=== PATIENT | female | born 1960 | race African-American/Black ===

== ENCOUNTER 2018-05-29 14:48 | Inpatient (IN) ==
--- NOTE | 2018-05-29 15:10 | ED ---
HPI General Chief Complaint: Psychiatric Symptoms Stated Complaint: Psych/DBPB Time Seen by Provider: 05/29/18 14:58 History of Present Illness HPI Narrative: Patient comes to the emergency department under [place] act by police. Patient states that she was crossing a road when she stopped by police and was placed under [place] act. Patient denies any homicidal or suicidal ideations. Patient denies any medical complaints at this time. Patient's only complaint is not wanting to be here. There are no modifying factors. Related Data Home Medications Medication Instructions Recorded Confirmed No Known Home Medications 05/29/18 05/29/18 Allergies Allergy/AdvReac Type Severity Reaction Status Date / Time No Known Allergies Allergy Unverified 05/29/18 14:53 Review of Systems ROS: all other systems reviewed are negative [facility] Medical History Medical History Surgical history unknown (Acute) Medical history unknown (Acute) Social History Social History Substance History: Unable to Obtain Smoking Status: Refused to answer How Often Do You Have a Drink Containing Alcohol: Unable to Obtain Recent Travel in [facility] within the Last 8 Weeks: No Recent Out of Country Travel within the Last 8 Weeks: No Exam Narrative Exam Narrative: GENERAL: Well-developed, well nourished, in no acute distress, and non-ill appearing. Aggravated. SKIN: Focused skin assessment warm and dry. HEAD: Atraumatic. Normocephalic. EYES: Pupils equal and round. EOMI. No scleral icterus. No injection or drainage. ENT: No nasal bleeding or discharge. Mucous membranes pink and moist. NECK: Trachea midline. Supple. No nuclear rigidity. CARDIOVASCULAR: Regular rate and rhythm. Grade 1/6 murmur appreciated. RESPIRATORY: No accessory muscle use. No respiratory distress. Clear to auscultation. Breath sounds equal bilaterally. MUSCULOSKELETAL: No obvious deformities. No clubbing. No cyanosis. No edema. Full range of motion. NEUROLOGICAL: Awake and alert. No obvious cranial nerve deficits. Motor grossly within normal limits. Normal speech. PSYCHIATRIC: Aggravated. Course Initial Documented Vital Signs Temperature 97.7 F 05/29/18 14:53 Pulse Rate 54 L 05/29/18 14:53 Respiratory Rate 20 05/29/18 14:53 Blood Pressure 210/89 H 05/29/18 14:53 Pulse Oximetry 97 05/29/18 14:53 Last Documented Vital Signs Temperature 97.7 F 05/29/18 14:53 Pulse Rate 49 L 05/29/18 16:39 Respiratory Rate 17 05/29/18 16:39 Blood Pressure 183/83 H 05/29/18 16:39 Pulse Oximetry 98 05/29/18 16:39 Medical Decision Making MDM Narrative Medical decision making narrative: Patient refusing all medical intervention. Patient was seen and examined. Labs were ordered, however patient is refusing all laboratory and other medical intervention. Patient medically cleared for further treatment and evaluation by psych. If patient becomes cooperative labs can be ordered at a later time and reevaluated then. Final disposition per psych. Differential Diagnosis Differential Diagnosis: Acute psychosis, nonspecific mood disorder, schizophrenia, substance induced mood disorder, aggressive behavior Discharge Plan Discharge Disposition Patient Disposition: 30 Still Patient Discharge Details Diagnosis: Medical clearance for psychiatric admission Physicians Team ED Provider: Geraldine Herrera ED Midlevel Provider: Juma Marcano Primary Care Provider: UNKNOWN, Rxs /Orders / Referrals /Forms Prescriptions: No Action No Known Home Medications RF: 0 Discharge Interventions Interventions: Vital Signs Last Done: 05/29/18 16:39 Status ED Status: Medically Cleared
[2018-05-30] MEDS ORDERED: Haloperidol Inj 5 MG/ML Ampul IM ONE (04:02)
[2018-05-30 07:12] VITALS: TEMP 98.4
[2018-05-30] MEDS ORDERED: Aluminum/Magnesium/Simethacone Susp 30 ML UDC PO PRN (08:47)
[2018-05-30] MEDS ORDERED: Acetaminophen 325 MG Tablet PO PRN (08:47)
--- NOTE | 2018-05-30 08:49 | P.HPPSY ---
Provisional Diagnosis Admission Date: May 29, 2018 14:48 [place] I.: 1. Schizophrenia, paranoid type, acute exacerbation [place] II.: Deferred Competence Certification of Person's Competence To Provide Express and Informed Consent I have personally examined Shanice Mooney, a person being served at [facility] on, May 30, 2018 0849. Express and informed consent means consent voluntarily given in writing, by a competent person, after sufficient explanation and disclosure of the subject matter involved to enable the person to make a knowing and willful decision without any element of force, fraud, deceit, duress, or other form of constraint or coercion. This person is 18 years of age or older, is not now known to be incompetent to consent to treatment with a guardian advocate, and does not have a health care surrogate or proxy currently making medical treatment decisions. I have found this person to be one of the following: [] Competent to provide express and informed consent, as defined above, for voluntary admission to this facility and is competent to provide express and informed consent for treatment. He/she has the consistent capacity to make well reasoned, willful, and knowing decisions concerning his or her medical or mental health treatment. The person fully and consistently understands the purpose of the admission for examination/placement and is fully capable of personally exercising all rights [place] [X] Incompetent to provide express and informed consent to voluntary admission, and this is incompetent to provide express and informed consent to treatment. The person must be transferred to involuntary status and a petition for a guardian advocate filed with the Circuit Court. [] Refusing to provide express and informed consent to voluntary admission but is competent to provide express and informed consent for treatment. The person must be discharged or transferred to involuntary status. Form shall be completed within 24 hours of a person's arrival at the receiving facility and filed in the clinical record of each person: 1. Admitted on a voluntary basis 2. Permitted to provide express and informed consent to his/her own treatment 3. Allowed to transfer from involuntary to voluntary status 4. Prior to permitting a person to consent to his or her own treatment after having been previously found incompetent to consent to treatment. History of Present Illness Capacity: Lacks capacity Chief Complaint: Psychosis History of Present Illness: Patient presents as a Shanice Dhillon. Her name is Azalea Lowe ( 1960). She presents under a [place] act by law enforcement alleging that the patient was dancing in the street. Patient required multiple behavioral p.r.n.s in the ED and also restraints for agitation. She has refused all labs. Reviewing the EMR for patient's stated name, I note that she was hospitalized most recently under Dr. Willoughby in 2016 [address] Figueroa in 2014. She has been on Haldol Dec in the past, but it appears from collateral obtained by psych screener that she has not received this in some time. Patient seen and examined. Chart reviewed. Case discussed with nursing staff. On my examination today, the patient is irritable and dysphoric. Her speech is inappropriately loud; some clang association is noted. She is quite paranoid and appears internally stimulated. She tells me that the police cadet who brought her in was "a sophisticated whore." She says of the staff here that "all of you are fucking with me! I wasn't stupid or crazy" when she arrived. She tells me "I'm not violent now, but when I go out in the real world I will be! [place] will be sued!" She denies any suicidal ideation, but it is not clear whether she is reliable to contract for safety. Patient is disheveled and there is concern for self-care deficit. Psychiatric interview is limited secondary to degree of psychiatric symptomatology. She has no acute physical complaints. Past psychiatric history: "I don't have no history of mental illness!" Patient does have a history of psychiatric admissions as noted above. Family history: "If my family has a psychiatric history, I don't know Dr. Rodrigues , Dr. Olivarez." She then begins singing in a nonsensical fashion. Chemical dependency history: "Only the drugs you give me." Social history: Unable to obtain because of psychiatric symptomatology. Given the patient's degree of psychiatric impairment and endeavor to reach out to the patient's brother Fito Sprague at [phone]. This number rings with no opportunity to leave a voicemail. I was able to reach the patient's niece Emily Marcano at [phone]. Ms. Marcano notes that the patient used to be under the care of the patient's sister who made sure that she took her medications. After sister's passing 2 years ago, the patient became medication nonadherent. She has been "out of control" and living homeless. Ms. Marcano is willing to act as healthcare surrogate. She provides consent to temporarily restrain the patient to obtain laboratories and EKG to better select pharmacotherapy for patient's condition. Review of Systems unobtainable due to mental condition PMFSH - History History Provided By: Patient - Medical History Medical History: Medical History (Last Updated 05/29/18 @ 14:57 by Marla Stinson) Surgical history unknown (Acute) Medical history unknown (Acute) - Tobacco History Smoking Status: Refused to answer - Alcohol History How Often Do You Have a Drink Containing Alcohol: Unable to Obtain - Substance Use History Substance History: Unable to Obtain - Travel History Recent Travel in the [place] Within the Last 8 Weeks: No Recent Travel Out of the Country Within the Last 8 Weeks: No - Immunization History Tetanus Immunization: Unable to Assess Hx Influenza Vaccine This Season: Unable to Assess Quality Measures - Psychiatric History Psychological trauma history: Unobtainable secondary to psychiatric condition - Patient Strengths Patient's strengths (minimum of 2): In a monitored setting. Verbally fluent. Medications and Allergies Allergies Allergy/AdvReac Type Severity Reaction Status Date / Time lisinopril Allergy Unknown Bradycardia Verified 05/29/18 17:17 orange juice Allergy Unknown Swelling Verified 05/29/18 17:17 of Lip/Tongue/Throat Home Medications Medication Instructions Recorded Confirmed Type No Known Home Medications 05/29/18 05/29/18 History Results - Labs Labs: Patient refused laboratories Exam Vital signs: Vital Signs 05/29/18 14:53 05/29/18 16:39 05/29/18 18:43 Temperature 97.7 F Pulse Rate 54 L 49 L Respiratory Rate 20 17 16 Blood Pressure 210/89 H 183/83 H Pulse Oximetry 97 98 05/29/18 19:07 05/29/18 19:30 05/30/18 07:11 Temperature 97.9 F 98.4 F Pulse Rate 63 54 L 86 Respiratory Rate 16 18 Blood Pressure 134/91 H 185/86 H Pulse Oximetry 100 100 Intake & Output 05/29/18 05/30/18 05/30/18 18:59 06:59 18:59 Weight 68.039 kg Narrative: Physical examination completed by ED provider. On my examination today, the patient appears to be in no acute physical distress. She is fairly disheveled. No motor abnormalities noted. Patient refusing laboratories. Mental Status Examination Appearance: Disheveled Consciousness: Alert, Vigilant Orientation: Person, Place (At least) Motor Activity: Other (No motor abnormalities noted) Speech: Other (Loud) Language: Adequate Fund of Knowledge: Inadequate Attention and Concentration: Easily distracted Memory: Impaired (Psychosis interferes) Mood: Angry, Oppositional, Irritable Affect: Irritable, Other (Dysphoric) Thought Process & Associations: Tangential Thought Content: Hallucinations, Delusional Hallucination Type: Other (Appears internally stimulated) Delusion Type: Paranoid Suicidal Ideation: No (Unreliable to contract for safety) Suicidal Plan: No Suicidal Intention: No Homicidal Ideation: Yes (See threats above) Homicidal Plan: No Homicidal Intention: No Insight: Poor Judgment: Poor Assessment and Plan - Assessment (1) Acute exacerbation of chronic paranoid schizophrenia Code(s): F20.0 - Paranoid schizophrenia Status: Acute - Plan Plan: Patient presents under [place] Act. She has a history of schizophrenia and appears to be experiencing acute exacerbation of chronic psychotic illness at this time. Collateral from the patient's niece indicates that she has long been medication nonadherent. Given concern for self-care deficit both because she was standing in the middle of the street and because of her disheveled appearance and given threats of violence as noted above I think it is most prudent to admit the patient to the inpatient psychiatric unit at this time for safety, observation and stabilization. Admit inpatient. Involuntary status. I have completed first opinion. Consult for second opinion. Request healthcare surrogate and guardian advocate. Patient has a history of Haldol Decanoate but also has a history of prolonged QTc. I would like to review laboratories and EKG prior to initiating antipsychotic. I have obtained consent from patient's healthcare surrogate temporarily restrain the patient to obtain needed laboratories and EKG. Once this has been done and based on the results, we will select appropriate pharmacotherapy for the patient's condition with consent of her health care surrogate. Vitals every shift. I will add clonidine as needed for hypertension. I do note that the patient has been on lisinopril in the past, but I see it is listed as one of her allergies. To consider an alternative antihypertensive if blood pressures remain elevated. Counselor to see. Disposition planning. Estimated length of stay: 7-9 days. Justification for Continued Inpatient Stay: See above Discharge Planning: Pending psychiatric stabilization Request Healthcare Surrogate/Guardian Advocate?: Yes
--- NOTE | 2018-05-30 10:08 | P.CONPSY ---
Provisional Diagnosis Admission Date: May 30, 2018 08:46 [place] I.: Schizophrenia chronic paranoid type History of Present Illness Service: Psychiatry Consult date: 05/30/18 Requesting Physician: Jose Luis Gorman Reason for Consult: Second opinion petition supporting [place] act Primary Care Provider: UNKNOWN History of Present Illness: Patient is a middle-aged Afro-[place] female came to the hospital under [place] act as a Shanice Dhillon, patient was seen by Dr. Gorman who did first opinion petition supporting [place] act. Patient seen by me, patient also discussed with nursing staff. Patient presented with his loud irritable and angry markedly psychotic and paranoid. With my visit patient is selectively mute very angry look on her face. Attempted to explain my role second opinion petition there is no reaction by her. Less at this time I feel patient does continue to meet criteria for involuntary psychiatric hospitalization for further assessment observation and treatment. Thus I will cosign second opinion petition supporting [place] act Review of Systems unobtainable due to mental condition PMFSH - History History Provided By: Patient - Medical History Medical History: Medical History (Last Updated 05/29/18 @ 14:57 by Marla Stinson) Surgical history unknown (Acute) Medical history unknown (Acute) - Tobacco History Smoking Status: Refused to answer - Alcohol History How Often Do You Have a Drink Containing Alcohol: Unable to Obtain - Substance Use History Substance History: Unable to Obtain - Travel History Recent Travel in the [place] Within the Last 8 Weeks: No Recent Travel Out of the Country Within the Last 8 Weeks: No - Immunization History Tetanus Immunization: Unable to Assess Hx Influenza Vaccine This Season: Unable to Assess Medications and Allergies Active Medications: Active Medications Acetaminophen (Tylenol) 650 mg PO Q4H PRN PRN Reason: Pain 1-5 or Temp >101F Al Hydrox/Mg Hydrox/Simethicone (Mag-Al Plus Susp Liq) 30 ml PO Q6H PRN PRN Reason: DYSPEPSIA Al Hydroxide/Mg Hydroxide (Milk Of Magnesia Liq) 30 ml PO Q12H PRN PRN Reason: Mild Constipation Diphenhydramine HCl (Benadryl) 50 mg PO HS PRN PRN Reason: INSOMNIA Nicotine (Habitrol 21 Mg Patch.24 Hr) 1 patch T-DERMAL DAILY PRN PRN Reason: Nicotine craving Patch Removal (Remove Old Patch) 1 each T-DERMAL DAILY KATHERIN Allergies Allergy/AdvReac Type Severity Reaction Status Date / Time lisinopril Allergy Unknown Bradycardia Verified 05/29/18 17:17 orange juice Allergy Unknown Swelling Verified 05/29/18 17:17 of Lip/Tongue/Throat Home Medications Medication Instructions Recorded Confirmed Type No Known Home Medications 05/29/18 05/29/18 History Exam Vital signs: Vital Signs 05/29/18 14:53 05/29/18 16:39 05/29/18 18:43 Temperature 97.7 F Pulse Rate 54 L 49 L Respiratory Rate 20 17 16 Blood Pressure 210/89 H 183/83 H Pulse Oximetry 97 98 05/29/18 19:07 05/29/18 19:30 05/30/18 07:11 Temperature 97.9 F 98.4 F Pulse Rate 63 54 L 86 Respiratory Rate 16 18 Blood Pressure 134/91 H 185/86 H Pulse Oximetry 100 100 Intake & Output 05/29/18 05/30/18 05/30/18 18:59 06:59 18:59 Weight 68.039 kg Mental Status Examination Appearance: Disheveled Consciousness: Other (Patient nonverbal refusing to respond to me) Motor Activity: Other (Patient nonverbal laying in bed) Speech: Other (Patient nonverbal) Language: Other Fund of Knowledge: Poor Attention and Concentration: Other (Patient nonverbal) Memory: Impaired (Patient nonverbal) Mood: Other (Patient nonverbal laying quietly in bed) Affect: Other (Patient nonverbal laying quietly in bed) Thought Content: Other (Patient nonverbal) Hallucination Type: Other (Patient nonverbal) Delusion Type: Other (Patient nonverbal) Insight: Poor Judgment: Poor (Unable to ascertain suicidality/homicidality patient nonverbal) Assessment and Plan - Assessment (1) Paranoid type schizophrenia, chronic state Code(s): F20.0 - Paranoid schizophrenia Status: Acute - Plan Plan: I agree with Dr. Gorman thus I will cosign second opinion petition supporting Maryam wadsworth Justification for Continued Inpatient Stay: At this time patient would decompensate a place to the lower level of care Discharge Planning: To be determined
--- NOTE | 2018-05-30 13:54 | P.PNPSY ---
Notified by RN that patient is bradycardic in the 30's, asymptomatic. 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 EKG reveals sinus bradycardia with QTc 520ms. Labs pending. //Transfer to . Hospitalist consult. Vascular access team for IV placement for IVF.
[2018-05-30 13:55] LABS: Baso % (Auto) 0.8 % (0.0-2.0); Eos # (Auto) 0.1 th/mm3 (0.0-0.4); Eos % (Auto) 2.2 % (0.0-4.0); Hematocrit 43.5 % (35.0-46.0); Hemoglobin 14.3 gm/dL (11.6-15.3); Lymph # (Auto) 2.4 th/mm3 (1.0-4.8); Lymph % (Auto) 44.8 % (9.0-44.0); Mean Corpuscular Hemoglobin 30.2 pg (27.0-34.0); Mean Corpuscular Volume 91.6 fL (80.0-100.0); Mono # (Auto) 0.6 th/mm3 (0.0-0.9); Mono % (Auto) 11.4 % (0.0-8.0); Neut # (Auto) 2.2 th/mm3 (1.8-7.7); Neut % (Auto) 40.8 % (16.0-70.0); Platelet Count 204 th/mm3 (150-450); Red Blood Count 4.75 mil/mm3 (4.00-5.30); Red Cell Distribution Width 14.4 % (11.6-17.2); White Blood Count 5.3 th/mm3 (4.0-11.0)
[2018-05-30 14:15] LABS: Alanine Aminotransferase 26 U/L (10-53); Albumin 3.6 g/dL (3.4-5.0); Anion Gap 7 meq/L (5-15); Aspartate Aminotransferase 19 U/L (15-37); Blood Urea Nitrogen 10 mg/dL (7-18); Calcium 9.2 mg/dL (8.5-10.1); Carbon Dioxide 28.6 meq/L (21.0-32.0); Chloride 109 meq/L (98-107); Glomerular Filtration Rate 58 mL/min (>89); Glucose,Random 85 mg/dL (74-106); Potassium 3.3 meq/L (3.5-5.1); Sodium 145 meq/L (136-145)
[2018-05-30 14:17] LABS: Alkaline Phosphatase 76 U/L (45-117); Total Protein 7.8 g/dL (6.4-8.2)
[2018-05-30 14:21] LABS: Alcohol 3 mg/dL (0-5)
[2018-05-30 14:55] LABS: Troponin I 0.07 ng/mL (0.02-0.05)
[2018-05-30 15:09] LABS: CKMB Percent 0.6 % (0.0-4.0); Creatine Kinase MB 1.5 ng/mL (0.5-3.6)
[2018-05-30 16:19] VITALS: BP 188/84; PULSE 34; O2SAT 95
[2018-05-30 16:55] VITALS: RESP 12
--- NOTE | 2018-05-30 17:54 | P.PNPSY ---
Spoke with patient's brother, Fito Sprague [phone]. Family has discussed , and he will be acting as HCS going forward. He reports patient has been repeatedly admitted to psychiatric units throughout the state but only for short stays, and so she remains in general quite psychiatrically ill. He is pleased to hear that she has been readmitted to [place] and hopes that we can stabilize her psychiatric condition. I have apprised Mr. Sprague of patient's change in status vis-a-vis the bradycardia and troponin elevation and have informed him that the patient will be moved to the medical floor for management of these issues.
--- NOTE | 2018-05-31 15:39 | ECG ---
Date Performed: 05/30/2018 Time Performed: 13:44:16 PTAGE: 89 years EKG: SINUS BRADYCARDIA LEFT VENTRICULAR HYPERTROPHY AND ST-T CHANGE Prolonged corrected QT inter roberta. ABNORMAL ECG NO PREVIOUS TRACING DOCTOR: Chente Torres Interpretating Date/Time 05/31/2018 15:37:22
== END 2018-05-30 18:30 | disposition short-term general hospital (02) ==
LOC: EDBD → NEPD 14:48 → NEDA 05-30 08:46 → H270 05-30 11:27 → H4EA 05-30 14:11
PROVIDERS: ADMIT Psychiatry & Neurology Psychiatry; ATTEND Psychiatry & Neurology Psychiatry

== ENCOUNTER 2018-05-30 16:48 | Inpatient (IN) ==
[2018-05-30] MEDS ORDERED: Acetaminophen 325 MG Tablet PO PRN (17:35)
[2018-05-30] MEDS ORDERED: Bisacodyl 10 MG Supp RECTAL PRN (17:35)
--- NOTE | 2018-05-30 17:47 | P.HPIM ---
History of Present Illness Service: [facility] Primary Care Physician: UNKNOWN Chief Complaint: POSITIVE TROPONIN AND BRADYCARDIA Inpatient Certification: I certify that the inpatient services were ordered in accordance with Medicare regulations governing the order. This includes certification that hospital inpatient services are reasonable and necessary and in the case of services not specified as inpatient-only under 42 CFR 419.22(n), that they are appropriately provided as inpatient services in accordance to with the 2-midnight benchmark under 43 CFR 412.3(e) Estimated Total Length of Stay (Days): 3 Plans for Post Hospital Care: Not yet determined Review of Systems unobtainable due to mental condition, unobtainable due to mental status PMFSH - History History Provided By: Patient - Medical History Medical History: Medical History (Last Updated 05/30/18 @ 17:41 by Alexandro Baez DO) Surgical history unknown (Acute) Medical history unknown (Acute) Psychiatric disorder - Family History Family History: Family History (Last Updated 05/30/18 @ 17:42 by Alexandro Baez DO) Other Family history of hypertension - Tobacco History Smoking Status: Refused to answer - Alcohol History How Often Do You Have a Drink Containing Alcohol: Unable to Obtain - Substance Use History Substance History: Unable to Obtain Medications and Allergies Active Medications: Active Medications Acetaminophen (Tylenol) 650 mg PO Q4H PRN PRN Reason: Temp > 100.4 Al Hydroxide/Mg Hydroxide (Milk Of Magnesia Liq) 30 ml PO Q12H PRN PRN Reason: Mild Constipation Bisacodyl (Dulcolax Supp) 10 mg RECTAL DAILY PRN PRN Reason: SEVERE CONSITIPATION Enoxaparin Sodium (Lovenox Inj) 40 mg SQ Q24H KATHERIN Sodium Chloride (Ns Inj) 1,000 mls @ 100 mls/hr IV.CONT .Q10H KATHERIN Lactulose (Lactulose Liq) 30 ml PO DAILY PRN PRN Reason: SEVERE CONSITIPATION Ondansetron HCl (Zofran Inj) 4 mg IV.PUSH Q6H PRN PRN Reason: NAUSEA OR VOMITING Senna/Docusate Sodium (Kellie-Colace) 1 tab PO BID KATHERIN Sennosides (Senokot) 17.2 mg PO Q12H PRN PRN Reason: Moderate Constipation Allergies Allergy/AdvReac Type Severity Reaction Status Date / Time lisinopril Allergy Unknown Bradycardia Verified 05/29/18 17:17 orange juice Allergy Unknown Swelling Verified 05/29/18 17:17 of Lip/Tongue/Throat Home Medications Medication Instructions Recorded Confirmed Type No Known Home Medications 05/29/18 05/29/18 History Exam Narrative: GENERAL: Awake and alert but mumbles does not really speak much does not follow commands not oriented to place or time states her name is Azalea-was quite lethargic during exam SKIN: Warm and dry. HEAD: Atraumatic. Normocephalic. EYES: Pupils equal and round. No scleral icterus. No injection or drainage. Bulging eyeballs bilaterally ENT: No nasal bleeding or discharge. Mucous membranes pink and moist. NECK: Trachea midline. No JVD. CARDIOVASCULAR: Regular rate and rhythm. S1-S2 no S3 or S4 RESPIRATORY: No accessory muscle use. Clear to auscultation. Breath sounds equal bilaterally. GASTROINTESTINAL: Abdomen soft, non-tender, nondistended. Hepatic and splenic margins not palpable. MUSCULOSKELETAL: Extremities without clubbing, cyanosis, or edema. No obvious deformities. NEUROLOGICAL: Awake and alert. No obvious cranial nerve deficits. Motor grossly within normal limits. 4 out of 5 muscle strength in the arms and legs. Normal speech. PSYCHIATRIC: INAppropriate mood and affect; insight and judgment ABnormal. Caprini VTE Risk Assessment Caprini VTE Risk Assessment: Moderate/High Risk (score >= 2) Caprini Risk Assessment Model: Point Value = 1 Point Value = 2 Point Value = 3 Point Value = 5 Age 41-60 Minor surgery BMI > 25 kg/m2 Swollen legs Varicose veins or History of unexplained or recurrent spontaneous Oral contraceptives or hormone replacement Sepsis (< 1 month) Serious lung disease, including pneumonia (< 1 month) Abnormal pulmonary function Acute myocardial infarction Congestive heart failure (< 1 month) History of inflammatory bowel disease Medical patient at bed rest Age 61-74 Arthroscopic surgery Major open surgery (> 45 min) Laparoscopic surgery (> 45 min) Malignancy Confined to bed (> 72 hours) Immobilizing plaster cast Central venous access Age >= 75 History of VTE Family history of VTE Factor V Leiden Prothrombin [id number] Lupus anticoagulant Anticardiolipin antibodies Elevated serum homocysteine Heparin-induced thrombocytopenia Other congenital or acquired thrombophilia Stroke (< 1 month) Elective arthroplasty Hip, pelvis, or leg fracture Acute spinal cord injury (< 1 month) Prophylaxis Regimen: Total Risk Factor Score Risk Level Prophylaxis Regimen 0-1 Low Early ambulation 2 Moderate Order ONE of the following: *Sequential Compression Device (SCD) *Heparin 5000 units SQ BID 3-4 Higher Order ONE of the following medications: *Heparin 5000 units SQ TID *Enoxaparin/Lovenox 40 mg SQ daily (WT < 150 kg, CrCl > 30 mL/min) *Enoxaparin/Lovenox 30 mg SQ daily (WT < 150 kg, CrCl > 10-29 mL/min) *Enoxaparin/Lovenox 30 mg SQ BID (WT < 150 kg, CrCl > 30 mL/min) AND/OR *Sequential Compression Device (SCD) 5 or more Highest Order ONE of the following medications: *Heparin 5000 units SQ TID (Preferred with Epidurals) *Enoxaparin/Lovenox 40 mg SQ daily (WT < 150 kg, CrCl > 30 mL/min) *Enoxaparin/Lovenox 30 mg SQ daily (WT < 150 kg, CrCl > 10-29 mL/min) *Enoxaparin/Lovenox 30 mg SQ BID (WT < 150 kg, CrCl > 30 mL/min) AND *Sequential Compression Device (SCD) Assessment and Plan - Plan Positive troponin has been placed in the inpatient. Consult cardiology. Trend troponins and cardiac enzymes. Get an echocardiogram. We will start fluids Keep on IV fluids Keep on telemetry Continue on Lovenox Psychiatric disorder will defer to psychiatry patient remains under Francisco act. Patient remains under [employer] act. Hypokalemia has been replaced Elevated CK total continue fluids Slightly elevated troponin consult cardiology Urine drug screen is negative for salicylates acetaminophen or alcohol Limited history since patient is noncompliant Noncompliance Consult psychiatry. Continue under Francisco act with sitter Continue on Lovenox and Pepcid for GI and DVT Code Status: Full code Discussed Condition With: RN and patient and psychiatry Discharge Planning: Once cleared by cardiology for transfer back into psychiatric care
[2018-05-30] MEDS: Sod Chloride 0.9% Inj 1,000 ML IV.CONT SCH (19:50)
[2018-05-30] MEDS: Aspirin 325 MG Tablet PO SCH (19:51)
[2018-05-30] MEDS: Enoxaparin Inj 40 MG/0.4 ML Syringe SQ SCH (19:59)
[2018-05-30] MEDS ORDERED: Atropine Inj 1 MG/ML Vial IV.PUSH PRN (20:19)
[2018-05-30] MEDS: Famotidine 20 MG Tablet PO SCH (21:35)
[2018-05-30] MEDS: Senna/Docusate Sodium 8.6/50 MG Tablet PO SCH (21:35)
[2018-05-30 22:13] LABS: Troponin I 0.08 ng/mL (0.02-0.05)
[2018-05-30 22:29] LABS: CKMB Percent 0.6 % (0.0-4.0); Creatine Kinase MB 1.4 ng/mL (0.5-3.6)
[2018-05-31 00:24] LABS: Hepatitits B Surface Antigen Nonreactive (Nonreactive)
[2018-05-31 00:41] LABS: Hepatitis A IgM Antibody Nonreactive (Nonreactive)
[2018-05-31] MEDS: Sod Chloride 0.9% Inj 1,000 ML IV.CONT SCH ×2 (02:49→14:51)
[2018-05-31 14:25] LABS: Chol/HDL Ratio 2.42 Ratio; Free T4 (Free Thyroxine) 1.19 ng/dL (0.76-1.46); HDL Cholesterol 77.8 mg/dL (40.0-60.0); Thyroid Stimulating Hormone 0.356 uIU/mL (0.358-3.740)
--- NOTE | 2018-05-31 14:40 | P.PNIM ---
Subjective Interval history: Confusion remains. Echo pending. No new complaints from patient. Physical Exam Vital signs: Vital Signs 05/30/18 18:45 05/30/18 20:00 05/31/18 00:00 Temperature 98.2 F 98.1 F 97.6 F Pulse Rate 34 L 34 L 31 L Respiratory Rate 17 20 16 Blood Pressure 179/88 H 195/84 H 180/82 H Pulse Oximetry 98 99 98 05/31/18 00:42 05/31/18 04:00 05/31/18 05:20 Temperature 97.8 F Pulse Rate 52 L 45 L 42 L Respiratory Rate 16 Blood Pressure 176/80 H Pulse Oximetry 97 05/31/18 08:00 05/31/18 12:00 Temperature 98.2 F 97.5 F L Pulse Rate 44 L 46 L Respiratory Rate 19 17 Blood Pressure 164/74 H 163/65 H Pulse Oximetry 96 100 Intake & Output 05/30/18 05/31/18 05/31/18 18:59 06:59 18:59 Intake Total 0 / 0 Balance 0 / 0 Weight 60.7 kg 60.7 kg Intake: Oral 0 / 0 Other: # Voids 0 Weight On Admission 60.7 kg Narrative: GENERAL: NAD, A&Ox1 HEAD: Normocephalic. NECK: Supple, trachea midline. No lymphadenopathy. EYES: No scleral icterus. No injection or drainage. CARDIOVASCULAR: Bradycardic rate, regular rhythm without murmurs, gallops, or rubs. RESPIRATORY: Breath sounds equal bilaterally. No accessory muscle use. Crackles at left base. GASTROINTESTINAL: Abdomen soft, non-tender, nondistended. MUSCULOSKELETAL: No cyanosis, or edema. SKIN: Warm and dry. NEURO: No focal neurological deficits. Results - Labs Laboratory Results - last 24 hr 05/30/18 05/30/18 05/30/18 13:30 20:28 20:28 Total Creatine Kinase 217 H CK-MB (CK-2) 1.4 CK-MB (CK-2) % 0.6 Troponin I 0.08 H Triglycerides 75 Cholesterol 189 LDL Cholesterol, Calc 96 HDL Cholesterol 77.8 H Cholesterol/HDL Ratio 2.42 TSH 0.356 L Free T4 1.19 Hepatitis A IgM Ab Nonreactive Hep Bs Antigen Nonreactive Hep B Core IgM Ab Nonreactive Hep C IgG Ab Nonreactive Assessment and Plan - Plan 57 year old female admitted with troponin elevation and bradycardia Elevated troponin Bradycardia Cardiology following IV Hydration Continue Lovenox Follow on telemetry Echo pending Psychiatric disorder Francisco act in place Psychiatry following Hypokalemia Replace as needed Continue to monitor potassium levels Mild Rhabdomyalysis IV Hydration DVT Prophylaxis Lovenox
[2018-05-31] MEDS: Aspirin 325 MG Tablet PO SCH (14:50)
[2018-05-31] MEDS: Famotidine 20 MG Tablet PO SCH ×2 (14:50→20:43)
[2018-05-31] MEDS: Senna/Docusate Sodium 8.6/50 MG Tablet PO SCH ×2 (14:50→20:43)
[2018-05-31 15:01] LABS: Baso % (Auto) 0.5 % (0.0-2.0); Eos # (Auto) 0.1 th/mm3 (0.0-0.4); Hemoglobin 13.2 gm/dL (11.6-15.3); Lymph # (Auto) 2.1 th/mm3 (1.0-4.8); Lymph % (Auto) 41.5 % (9.0-44.0); Mean Corpuscular HGB Conc 33.7 % (32.0-36.0); Mean Corpuscular Hemoglobin 30.1 pg (27.0-34.0); Mean Corpuscular Volume 89.2 fL (80.0-100.0); Mean Platelet Volume 8.9 fL (7.0-11.0); Mono # (Auto) 0.4 th/mm3 (0.0-0.9); Mono % (Auto) 7.9 % (0.0-8.0); Neut # (Auto) 2.5 th/mm3 (1.8-7.7); Neut % (Auto) 48.1 % (16.0-70.0); Platelet Count 208 th/mm3 (150-450); Red Blood Count 4.37 mil/mm3 (4.00-5.30); Red Cell Distribution Width 13.7 % (11.6-17.2); White Blood Count 5.1 th/mm3 (4.0-11.0)
[2018-05-31 15:18] LABS: Prothrombin Time 10.6 sec (9.8-11.6)
[2018-05-31 16:05] LABS: Alanine Aminotransferase 20 U/L (10-53); Albumin 3.2 g/dL (3.4-5.0); Alkaline Phosphatase 71 U/L (45-117); Anion Gap 9 meq/L (5-15); Aspartate Aminotransferase 17 U/L (15-37); Blood Urea Nitrogen 13 mg/dL (7-18); Calcium 8.6 mg/dL (8.5-10.1); Carbon Dioxide 26.5 meq/L (21.0-32.0); Chloride 108 meq/L (98-107); Chol/HDL Ratio 2.66 Ratio; Cholesterol 171 mg/dL (120-200); Creatine Kinase 163 U/L (26-192); Free T4 (Free Thyroxine) 1.09 ng/dL (0.76-1.46); Glomerular Filtration Rate 65 mL/min (>89); Glucose,Random 126 mg/dL (74-106); HDL Cholesterol 64.1 mg/dL (40.0-60.0); LDL Cholesterol,Calculated 85 mg/dL (0-99); Magnesium 1.9 mg/dL (1.5-2.5); Phosphorus 2.5 mg/dL (2.5-4.9); Sodium 143 meq/L (136-145); Thyroid Stimulating Hormone 0.193 uIU/mL (0.358-3.740); Total Protein 6.6 g/dL (6.4-8.2); Triglycerides 109 mg/dL (42-150)
[2018-05-31 16:22] LABS: Potassium 2.9 meq/L (3.5-5.1)
--- NOTE | 2018-05-31 16:47 | P.CONPSY ---
Provisional Diagnosis Admission Date: May 30, 2018 18:23 [place] I.: 1. Schizophrenia, paranoid type, acute exacerbation [place] II.: Deferred History of Present Illness Service: Psychiatry Consult date: 05/31/18 Requesting Physician: Alexandro Baez Reason for Consult: "Continue Francisco act" Primary Care Provider: UNKNOWN Chief Complaint: POSITIVE TROPONIN AND BRADYCARDIA History of Present Illness: Ms. Lowe is a 57-year-old female with a history of schizophrenia who was transferred to the medical floor from the psychiatric unit after experiencing bradycardia in the setting of troponin elevation. She is presently under a completed petition for involuntary psychiatric hospitalization. I have evaluated the patient in the emergency department yesterday morning 05/30 and completed a psychiatric history and physical examination: Patient presents as a Shanice Dhillon. Her name is Azalea Lowe ( 1960). She presents under a [place] act by law enforcement alleging that the patient was dancing in the street. Patient required multiple behavioral p.r.n.s in the ED and also restraints for agitation. She has refused all labs. Reviewing the EMR for patient's stated name, I note that she was hospitalized most recently under Dr. Willoughby in 2016 [address] Figueroa in 2014. She has been on Haldol Dec in the past, but it appears from collateral obtained by psych screener that she has not received this in some time. Patient seen and examined. Chart reviewed. Case discussed with nursing staff. On my examination today, the patient is irritable and dysphoric. Her speech is inappropriately loud; some clang association is noted. She is quite paranoid and appears internally stimulated. She tells me that the police specialist who brought her in was "a sophisticated whore." She says of the staff here that "all of you are fucking with me! I wasn't stupid or crazy" when she arrived. She tells me "I'm not violent now, but when I go out in the real world I will be! [employer] will be sued!" She denies any suicidal ideation, but it is not clear whether she is reliable to contract for safety. Patient is disheveled and there is concern for self-care deficit. Psychiatric interview is limited secondary to degree of psychiatric symptomatology. She has no acute physical complaints. Past psychiatric history: "I don't have no history of mental illness!" Patient does have a history of psychiatric admissions as noted above. Family history: "If my family has a psychiatric history, I don't know Dr. Rodrigues , Dr. Olivarez." She then begins singing in a nonsensical fashion. Chemical dependency history: "Only the drugs you give me." Social history: Unable to obtain because of psychiatric symptomatology. Given the patient's degree of psychiatric impairment and endeavor to reach out to the patient's brother Fito Sprague at [phone]. This number rings with no opportunity to leave a voicemail. I was able to reach the patient's niece Emily Marcano at [phone]. Ms. Marcano notes that the patient used to be under the care of the patient's sister who made sure that she took her medications. After sister's passing 2 years ago, the patient became medication nonadherent. She has been "out of control" and living homeless. Ms. Marcano is willing to act as healthcare surrogate. She provides consent to temporarily restrain the patient to obtain laboratories and EKG to better select pharmacotherapy for patient's condition. On my examination today, 05/31: Patient seen and examined. Chart reviewed. Cardiology consultation pending. On my examination today, the patient remained somewhat paranoid. She believes that someone might be using her name and is also very guarded about giving any blood for laboratory testing. Affect is less irritable and dysphoric today. She denies any suicidal or homicidal ideation. Denies any audiovisual hallucinations. Tells me that she is feeling "okay." Resistant to psychotropic medications. Otherwise, presentation unchanged from yesterday. Review of Systems All other systems reviewed negative except as stated in HPI (Limitation: Psychosis) [facility] - History History Provided By: Patient - Medical History Medical History: Medical History (Last Reviewed 05/31/18 @ 08:07 by Natalie Queen) Surgical history unknown (Acute) Medical history unknown (Acute) Psychiatric disorder - Family History Family History: Family History (Last Updated 05/30/18 @ 17:42 by Alexandro Baez DO) Other Family history of hypertension - Tobacco History Smoking Status: Refused to answer - Alcohol History How Often Do You Have a Drink Containing Alcohol: Unable to Obtain - Substance Use History Substance History: Unable to Obtain Medications and Allergies Active Medications: Active Medications Acetaminophen (Tylenol) 650 mg PO Q4H PRN PRN Reason: Temp > 100.4 Al Hydroxide/Mg Hydroxide (Milk Of Magnesia Liq) 30 ml PO Q12H PRN PRN Reason: Mild Constipation Aspirin (Aspirin) 325 mg PO DAILY [facility] Last Admin: 05/31/18 14:50 Dose: Not Given Atropine Sulfate (Atropine Inj) 0.5 mg IV.PUSH Q5M PRN PRN Reason: HR < 35 Last Admin: 05/31/18 00:37 Dose: 0.5 mg Bisacodyl (Dulcolax Supp) 10 mg RECTAL DAILY PRN PRN Reason: SEVERE CONSITIPATION Clonidine HCl (Catapres) 0.1 mg PO Q6H PRN PRN Reason: SYS BP GREATER THAN 160 MMHG Enoxaparin Sodium (Lovenox Inj) 40 mg SQ Q24H [facility] Last Admin: 05/30/18 19:59 Dose: Not Given Famotidine (Pepcid) 10 mg PO BID [facility] Last Admin: 05/31/18 14:50 Dose: Not Given Sodium Chloride (Ns Inj) 1,000 mls @ 100 mls/hr IV.CONT .Q10H [facility] Last Admin: 05/31/18 14:51 Dose: Not Given Lactulose (Lactulose Liq) 30 ml PO DAILY PRN PRN Reason: SEVERE CONSITIPATION Miscellaneous (Pill Splitter) 1 each OTHER [facility] Ondansetron HCl (Zofran Inj) 4 mg IV.PUSH Q6H PRN PRN Reason: NAUSEA OR VOMITING Senna/Docusate Sodium (Kellie-Colace) 1 tab PO BID [facility] Last Admin: 05/31/18 14:50 Dose: Not Given Sennosides (Senokot) 17.2 mg PO Q12H PRN PRN Reason: Moderate Constipation Allergies Allergy/AdvReac Type Severity Reaction Status Date / Time lisinopril Allergy Unknown Bradycardia Verified 05/29/18 17:17 orange juice Allergy Unknown Swelling Verified 05/29/18 17:17 of Lip/Tongue/Throat Home Medications Medication Instructions Recorded Confirmed Type No Known Home Medications 05/29/18 05/29/18 History Exam Vital signs: Vital Signs 05/30/18 18:45 05/30/18 20:00 05/31/18 00:00 Temperature 98.2 F 98.1 F 97.6 F Pulse Rate 34 L 34 L 31 L Respiratory Rate 17 20 16 Blood Pressure 179/88 H 195/84 H 180/82 H Pulse Oximetry 98 99 98 05/31/18 00:42 05/31/18 04:00 05/31/18 05:20 Temperature 97.8 F Pulse Rate 52 L 45 L 42 L Respiratory Rate 16 Blood Pressure 176/80 H Pulse Oximetry 97 05/31/18 08:00 05/31/18 12:00 05/31/18 16:00 Temperature 98.2 F 97.5 F L 97.5 F L Pulse Rate 44 L 44 L 47 L Respiratory Rate 19 17 17 Blood Pressure 164/74 H 163/65 H 151/68 H Pulse Oximetry 96 100 96 Intake & Output 05/30/18 05/31/18 05/31/18 18:59 06:59 18:59 Intake Total 0 / 0 1000 / 1000 Balance 0 / 0 1000 / 1000 Weight 60.7 kg 60.7 kg Intake: IV 1000 / 1000 NS Inj 1,000 ML @ 100 mls/hr IV 1000 / 1000 .CONT .Q10H KATHERIN Rx#:[id number] Oral 0 / 0 Other: # Voids 0 Weight On Admission 60.7 kg Narrative: Physical examination completed by the primary team. On my examination today, the patient appears to be in no acute physical distress. I do note that she is wearing a blue surgical bouffant cap, and she was wearing the same yesterday. No motor abnormalities noted. Labs and vitals reviewed: Laboratory Results - last 24 hr 05/30/18 05/30/18 05/30/18 13:30 20:28 20:28 WBC RBC Hgb Hct MCV MCH MCHC RDW Plt Count MPV Neut % (Auto) Lymph % (Auto) [place] % (Auto) Eos % (Auto) Baso % (Auto) Neut # (Auto) Lymph # (Auto) [place] # (Auto) Eos # (Auto) Baso # (Auto) WBC Differential Differential Comment PT INR Sodium Potassium Chloride Carbon Dioxide Anion Gap BUN Creatinine Estimated GFR Random Glucose Calcium Phosphorus Magnesium Total Bilirubin AST ALT Alkaline Phosphatase Ammonia Total Creatine Kinase 217 H CK-MB (CK-2) 1.4 CK-MB (CK-2) % 0.6 Troponin I 0.08 H Total Protein Albumin Triglycerides 75 Cholesterol 189 LDL Cholesterol, Calc 96 HDL Cholesterol 77.8 H Cholesterol/HDL Ratio 2.42 TSH 0.356 L Free T4 1.19 Hepatitis A IgM Ab Nonreactive Hep Bs Antigen Nonreactive Hep B Core IgM Ab Nonreactive Hep C IgG Ab Nonreactive 05/31/18 05/31/18 05/31/18 14:44 14:44 14:44 WBC 5.1 RBC 4.37 Hgb 13.2 Hct 39.0 MCV 89.2 MCH 30.1 MCHC 33.7 RDW 13.7 Plt Count 208 MPV 8.9 Neut % (Auto) 48.1 Lymph % (Auto) 41.5 [place] % (Auto) 7.9 Eos % (Auto) 2.0 Baso % (Auto) 0.5 Neut # (Auto) 2.5 Lymph # (Auto) 2.1 [place] # (Auto) 0.4 Eos # (Auto) 0.1 Baso # (Auto) 0.0 WBC Differential . Differential Comment Auto diff final PT 10.6 INR 1.0 Sodium 143 Potassium 2.9 L* Chloride 108 H Carbon Dioxide 26.5 Anion Gap 9 BUN 13 Creatinine 1.05 H Estimated GFR 65 L Random Glucose 126 H Calcium 8.6 Phosphorus 2.5 Magnesium 1.9 Total Bilirubin 0.4 AST 17 ALT 20 Alkaline Phosphatase 71 Ammonia Total Creatine Kinase 163 CK-MB (CK-2) CK-MB (CK-2) % Troponin I 0.10 H Total Protein 6.6 D Albumin 3.2 L Triglycerides 109 Cholesterol 171 LDL Cholesterol, Calc 85 HDL Cholesterol 64.1 H Cholesterol/HDL Ratio 2.66 TSH 0.193 L Free T4 1.09 Hepatitis A IgM Ab Hep Bs Antigen Hep B Core IgM Ab Hep C IgG Ab 05/31/18 14:44 WBC RBC Hgb Hct MCV MCH MCHC RDW Plt Count MPV Neut % (Auto) Lymph % (Auto) [place] % (Auto) Eos % (Auto) Baso % (Auto) Neut # (Auto) Lymph # (Auto) [place] # (Auto) Eos # (Auto) Baso # (Auto) WBC Differential Differential Comment PT INR Sodium Potassium Chloride Carbon Dioxide Anion Gap BUN Creatinine Estimated GFR Random Glucose Calcium Phosphorus Magnesium Total Bilirubin AST ALT Alkaline Phosphatase Ammonia 42 H Total Creatine Kinase CK-MB (CK-2) CK-MB (CK-2) % Troponin I Total Protein Albumin Triglycerides Cholesterol LDL Cholesterol, Calc HDL Cholesterol Cholesterol/HDL Ratio TSH Free T4 Hepatitis A IgM Ab Hep Bs Antigen Hep B Core IgM Ab Hep C IgG Ab Mental Status Examination Appearance: Disheveled Consciousness: Alert, Vigilant Orientation: Person, Place, Date/Time Motor Activity: Other (No motor abnormalities noted) Speech: Unremarkable Language: Adequate Fund of Knowledge: Adequate Attention and Concentration: Adequate Memory: Unremarkable Mood: Irritable Affect: Other (Less irritable and dysphoric today versus yesterday) Thought Process & Associations: Intact Thought Content: Delusional Hallucination Type: None Delusion Type: Paranoid Suicidal Ideation: No Suicidal Plan: No Suicidal Intention: No Homicidal Ideation: No Homicidal Plan: No Homicidal Intention: No Insight: Poor Judgment: Poor Assessment and Plan - Assessment (1) Acute exacerbation of chronic paranoid schizophrenia Code(s): F20.0 - Paranoid schizophrenia Status: Acute - Plan Plan: 57-year-old female with a history of schizophrenia transferred from the psychiatric unit to the medical floor secondary to bradycardia and troponin elevation. Psychiatry is consulted to follow along on the medical floor. On my examination today, the patient remains paranoid and is still experiencing acute exacerbation of her chronic psychotic illness. Although she does have acute medical issues, I do not suspect a significant contribution from delirium at this point. I recommend the following: --QTc was prolonged on EKG obtained in psychiatric unit. Hold off on initiating antipsychotic pending cardiology input. Abilify might be a good choice, given it's minimal association with arrhythmia, but there is no short- acting IM formulation and patient does not want to take antipsychotics and so adherence might be an issue. --For agitation, would definitely prefer benzos to antipsychotics at this point. Could consider Ativan 1-2mg PO/IM/IV q6h p.r.n., monitoring for worsening of mental status with this agent. --Patient is not presently with a sitter. She is not suicidal or homicidal, but could consider placing with a sitter if behavior deteriorates for behavioral redirection or if she begins to agitate for discharge as she may try to elope. --Patient remains under a petition for involuntary psychiatric hospitalization. We will plan to accept back to inpatient psychiatric unit once medically stabilized. [facility] would also be an option when the patient no longer requires telemetry. Thank you very much for this consultation. I will plan to sign the case out to Dr. Cochran when he returns on 06/03, but I will be in house over the weekend if there are acute issues. Please call or page with questions. Justification for Continued Inpatient Stay: Per primary team.
[2018-05-31 17:27] LABS: Hemoglobin A1c 5.6 % (4.3-6.0)
[2018-05-31] MEDS ORDERED: Potassium Chloride 25 MEQ Effervescent Tablet PO ONE (18:30)
[2018-05-31] MEDS: Enoxaparin Inj 40 MG/0.4 ML Syringe SQ SCH (19:42)
--- NOTE | 2018-05-31 22:46 | MB ---
cc: FranciscoJohnny Yaron FERRARI DATE: 05/31/2018 REASON FOR CONSULTATION: Bradycardia, elevated troponin. HISTORY OF PRESENT ILLNESS: Azalea Lowe is a 57-year-old female who was brought in to the hospital under a Francisco Act and was on her way to admission to psychiatry when they noted that she was bradycardic. They also checked a troponin level and it was noted to be elevated and so she was then transferred to the med/surg floor. Apparently, she was brought in as a Francisco Act by law enforcement because the patient was dancing in the street. She has refused all treatment. Apparently, she also has had multiple admissions to different [facility] hospitals throughout the [facility]. In seeing her, she is currently hemodynamically stable, relaxing comfortably in bed. She is unable to tell me why she was admitted to the hospital, but states that she was at the "[employer]" and then they brought her in. Since being here, her heart rates have been mostly in the 30s to 40s and the patient is totally asymptomatic from this. PAST MEDICAL HISTORY: Appears to be: 1. Schizophrenia. 2. Hypertension. PAST SURGICAL HISTORY: Unknown. ALLERGIES: 1. LISINOPRIL. 2. ORANGE JUICE. MEDICATIONS: Unknown. FAMILY HISTORY: Unknown. SOCIAL HISTORY: Unable to obtain. REVIEW OF SYSTEMS: I attempted to review all 14 systems, although the patient is difficult with this. Overall, she denies having chest pain, shortness of breath or palpitations. PHYSICAL EXAMINATION: VITAL SIGNS: Temperature 97.5, heart rate 46, blood pressure 163/65, respirations 17, pulse oximetry 100% on room air. GENERAL: The patient is in no acute distress, alert and awake. HEENT: Pupils are equal and round. Mucous membranes moist. NECK: Supple. No JVD at 45 degrees. HEART: Bradycardic but regular. Positive first and second heart sounds. LUNGS: Clear to auscultation bilaterally. No wheezes, rales or rhonchi. ABDOMEN: Soft, nontender, nondistended. No organomegaly noted. EXTREMITIES: Show no clubbing, cyanosis or edema. NEUROLOGIC: The patient appears to move all 4 extremities spontaneously. OSTEOPATHIC: No kyphoscoliosis or lordosis. LABORATORY DATA: Hemoglobin 13.2, hematocrit 39.0, platelets 208. Potassium 2.9, BUN 13, creatinine 1.05. Troponin 0.10. Electrocardiogram (05/30/2018 at 1304), sinus bradycardia, LVH with secondary ST-T wave changes. IMPRESSION: 1. Minimally elevated troponin, possibly type 2 in nature. 2. Asymptomatic bradycardia. 3. Accelerated hypertension. 4. Schizophrenia. 5. Admitted under a Francisco Act. RECOMMENDATIONS: 1. Ms. Lowe presented under a Francisco Act and will be seen by psychiatry for further recommendations. 2. Upon arrival, she did have accelerated hypertension with a blood pressure of 195/84, which may be the cause for her elevated troponin as well as possible LVH. The patient is overall asymptomatic and would not consider further workup at this time. 3. She is significantly bradycardic but is asymptomatic from this. Review of her telemetry shows no significant AV blocks. Overall, this may be due to a hypertensive reaction leading to significant bradycardia. 4. Would avoid AV ashia blocking agents. 5. We will plan to treat her hypertension with Norvasc at this time if she is willing to take any type of medication. 6. We will check a 2-D echo to look at her overall left ventricular function, cardiac structure and possible valvulopathies. 7. Further recommendations will be made based on her hospital course. Thank you for allowing me to see Azalea Lowe. If there are any questions, please do not hesitate to call. DO Nadya Ureña , 09:59 PM , 10:10 PM CATRINA
[2018-06-01] MEDS: Sod Chloride 0.9% Inj 1,000 ML IV.CONT SCH ×2 (05:39→15:50)
[2018-06-01] MEDS: Famotidine 20 MG Tablet PO SCH ×2 (08:30→22:46)
[2018-06-01] MEDS: Senna/Docusate Sodium 8.6/50 MG Tablet PO SCH ×2 (08:30→22:46)
[2018-06-01] MEDS: amLODIPine 5 MG Tablet PO SCH (08:30)
[2018-06-01] MEDS: Aspirin 325 MG Tablet PO SCH (08:30)
--- NOTE | 2018-06-01 10:42 | P.PN ---
Subjective Interval history: Nursing denies any deterioration since last night except for the fact that the patient still refusing all medications and all testing. When I approach the patient she is initially very pleasant, she is able to tell me that she is at [place], month is May, near is 2017. When I informed her that we are concerned about her heart and that we wanted an echocardiogram, she said that she will get it done but not today. When I asked her why, she becomes very defensive and says that it is her body and she gets to choose her treatment options. She then says no questions, no answers" when I asked her why she would refuse it today. Physical Exam Vital signs: Vital Signs 05/31/18 12:00 05/31/18 16:00 06/01/18 08:00 Temperature 97.5 F L 97.5 F L 97.8 F Pulse Rate 44 L 47 L 45 L Respiratory Rate 17 17 18 Blood Pressure 163/65 H 151/68 H 180/79 H Pulse Oximetry 100 96 100 Intake & Output 05/31/18 06/01/18 06/01/18 18:59 06:59 18:59 Intake Total 1500 / 1500 Balance 1500 / 1500 Weight 60 kg Intake: IV 1000 / 1000 NS Inj 1,000 ML @ 100 mls/hr IV 1000 / 1000 .CONT .Q10H KATHERIN Rx#:[id number] Oral 500 / 500 Other: # Voids 3 Date of Last Bowel Movement 05/31/18 Narrative: Patient refuses physical exam. Results - Labs CBC & Chem 7: 05/31/18 14:44 05/31/18 14:44 Laboratory Results - last 24 hr 05/30/18 05/31/18 05/31/18 13:30 14:44 14:44 WBC 5.1 RBC 4.37 Hgb 13.2 Hct 39.0 MCV 89.2 MCH 30.1 MCHC 33.7 RDW 13.7 Plt Count 208 MPV 8.9 Neut % (Auto) 48.1 Lymph % (Auto) 41.5 [place] % (Auto) 7.9 Eos % (Auto) 2.0 Baso % (Auto) 0.5 Neut # (Auto) 2.5 Lymph # (Auto) 2.1 [place] # (Auto) 0.4 Eos # (Auto) 0.1 Baso # (Auto) 0.0 WBC Differential . Differential Comment Auto diff final PT 10.6 INR 1.0 Sodium Potassium Chloride Carbon Dioxide Anion Gap BUN Creatinine Estimated GFR Random Glucose Hemoglobin A1c Calcium Phosphorus Magnesium Total Bilirubin AST ALT Alkaline Phosphatase Ammonia Total Creatine Kinase Troponin I Total Protein Albumin Triglycerides 75 Cholesterol 189 LDL Cholesterol, Calc 96 HDL Cholesterol 77.8 H Cholesterol/HDL Ratio 2.42 TSH 0.356 L Free T4 1.19 05/31/18 05/31/18 05/31/18 14:44 14:44 14:44 WBC RBC Hgb Hct MCV MCH MCHC RDW Plt Count MPV Neut % (Auto) Lymph % (Auto) [place] % (Auto) Eos % (Auto) Baso % (Auto) Neut # (Auto) Lymph # (Auto) [place] # (Auto) Eos # (Auto) Baso # (Auto) WBC Differential Differential Comment PT INR Sodium 143 Potassium 2.9 L* Chloride 108 H Carbon Dioxide 26.5 Anion Gap 9 BUN 13 Creatinine 1.05 H Estimated GFR 65 L Random Glucose 126 H Hemoglobin A1c 5.6 Calcium 8.6 Phosphorus 2.5 Magnesium 1.9 Total Bilirubin 0.4 AST 17 ALT 20 Alkaline Phosphatase 71 Ammonia 42 H Total Creatine Kinase 163 Troponin I 0.10 H Total Protein 6.6 D Albumin 3.2 L Triglycerides 109 Cholesterol 171 LDL Cholesterol, Calc 85 HDL Cholesterol 64.1 H Cholesterol/HDL Ratio 2.66 TSH 0.193 L Free T4 1.09 Assessment and Plan - Plan 57 year old female admitted with troponin elevation and bradycardia Elevated troponin Bradycardia Cardiology following Bradycardia has been asymptomatic per cardiology conclusion, however patient has refused echocardiogram while cardiology desires it Psychiatric disorder Francisco act in place Psychiatry following Hypokalemia Was supposed to have been replaced, ordered recheck but I am afraid the patient will refuse this as well.. Mild Rhabdomyalysis IV Hydration but pt refusing IVFs DVT Prophylaxis Lovenox Discharge Planning: Call put out to psychiatry to see if the patient can actually refuse her diagnostic and treatment options given that her electrolyte levels were last known to be very dangerously abnormal, and that the patient's reason for a medical hospitalization pens compliance. Otherwise she has no reason to be medically hospitalized and can be transitioned back to a psychiatry floor once she is medically cleared. This is a catch 21 situation. Addendum: Reviewed cardiology note, clear to attempt psychiatric medications with close monitoring of QTC via EKG. Relayed to psychiatry Dr. Paredes who confirms that the patient does not have medical decision-making capacity. I contacted the patient's brother and he has given verbal permission over the phone to proceed with further diagnostic testing including IV punctures for labs and any other imaging is medically warranted. Will start the patient on p.o. Abilify and if she refuses we will then give IM Zyprexa as needed daily. Will reorder echo.
--- NOTE | 2018-06-01 14:38 | P.PNCA ---
Subjective Interval history: No events Patient up to the chair, heart rates in the 50s Denies CP/SOB When I attempted to ask her other questions, she started obsessing about the floor and from then on unwilling to answer any other questions Not allowing the echo to be done twice Physical Exam Vital signs: Vital Signs 05/31/18 16:00 06/01/18 08:00 06/01/18 12:00 Temperature 97.5 F L 97.8 F 98.4 F Pulse Rate 47 L 45 L 51 L Respiratory Rate 17 18 18 Blood Pressure 151/68 H 180/79 H 134/67 Pulse Oximetry 96 100 99 Intake & Output 05/31/18 06/01/18 06/01/18 18:59 06:59 18:59 Intake Total 1500 / 1500 Balance 1500 / 1500 Weight 60 kg Intake: IV 1000 / 1000 NS Inj 1,000 ML @ 100 mls/hr IV 1000 / 1000 .CONT .Q10H KATHERIN Rx#:[id number] Oral 500 / 500 Other: # Voids 3 Date of Last Bowel Movement 05/31/18 Narrative: Patient refusing physical exam GENERAL: NAD HEAD: Atraumatic. Normocephalic. EYES: Pupils equal and round ENT: No nasal bleeding or discharge. Mucous membranes pink and moist. Otherwise unable to obtain Assessment and Plan - Assessment (1) Bradycardia Code(s): R00.1 - Bradycardia, unspecified Status: Acute (2) Elevated troponin Code(s): R74.8 - Abnormal levels of other serum enzymes Status: Acute (3) LVH (left ventricular hypertrophy) Code(s): I51.7 - Cardiomegaly Status: Acute (4) Hypertensive urgency Code(s): I16.0 - Hypertensive urgency Status: Acute (5) Paranoid type schizophrenia, chronic state Code(s): F20.0 - Paranoid schizophrenia Status: Acute (6) Acute exacerbation of chronic paranoid schizophrenia Code(s): F20.0 - Paranoid schizophrenia Status: Acute - Plan 1) Schizophrenia Francisco Act Psych following the patient 2) Accelerated HTN Patient refusing all meds 3) Mildly elevated troponin Asymptomatic Most likely secondary to accelerated HTN/LVH Patient refused echo No further work up at this time 4) Asymptomatic bradycardia Possible reaction due to hypertensive urgency Heart rates increased after being up to the chair, appears to have chronotropic competency Avoid AV ashia blocking agents 5) QTc prolongation Appears to be including the U-wave in calculation QT more likely 508, making the QTc 462 Ok to attempt psych medications, will need to follow on EKG to watch for prolongation of QTc Otherwise, she will not let us work her up medically to clear her for psych
[2018-06-01] MEDS: ARIPiprazole 2 MG Tablet PO SCH (18:08)
[2018-06-01] MEDS ORDERED: Potassium Chloride Inj 20 MEQ, Magnesium Sulfate Inj 2 GM in Dextrose 5%/NaCl 0.45% Inj... IV.SIG ONE (20:00)
[2018-06-01] MEDS: Enoxaparin Inj 40 MG/0.4 ML Syringe SQ SCH (22:46)
[2018-06-02] MEDS: Sod Chloride 0.9% Inj 1,000 ML IV.CONT SCH ×4 (06:52→22:00)
[2018-06-02] MEDS: Aspirin 325 MG Tablet PO SCH (08:32)
[2018-06-02] MEDS: Senna/Docusate Sodium 8.6/50 MG Tablet PO SCH ×2 (08:33→21:55)
[2018-06-02] MEDS: Famotidine 20 MG Tablet PO SCH ×2 (08:33→21:55)
[2018-06-02 09:12] VITALS: RESP 18
[2018-06-02] MEDS: amLODIPine 5 MG Tablet PO SCH (09:19)
--- NOTE | 2018-06-02 11:26 | P.PN ---
Subjective Interval history: Nursing reports that they were actually able to convince the patient to take Norvasc. Otherwise no other deterioration since last night. When I speak to the patient myself, she says she is not taking any medications. When I asked her if she is willing to do the echocardiogram today she says no. When asked if anyone has ever told her she has a heart murmur she says that there is no way I diagnosed her with heart murmur after all these years and no one else found out that she had a heart murmur previously. Physical Exam Vital signs: Vital Signs 06/01/18 12:00 06/01/18 16:00 06/01/18 20:00 Temperature 98.4 F 98.2 F 97.1 F L Pulse Rate 51 L 48 L 45 L Respiratory Rate 18 18 20 Blood Pressure 134/67 210/95 H 176/76 H Pulse Oximetry 99 98 100 06/02/18 00:00 06/02/18 08:00 Temperature 96.1 F L 97.9 F Pulse Rate 48 L 40 L Respiratory Rate 20 18 Blood Pressure 154/69 H 206/90 H Pulse Oximetry 95 99 Intake & Output 06/01/18 06/02/18 06/02/18 18:59 06:59 18:59 Intake Total 480 / 480 1014 / 1014 Balance 480 / 480 1014 / 1014 Intake: IV 1014 / 1014 NS Inj 1,000 ML @ 100 mls/hr IV 0 / 0 .CONT .Q10H KATHERIN Rx#:[id number] Oral 480 / 480 Other: # Voids 3 Narrative: 2/6 ejection murmur No lower extremity edema Unlabored breathing, clear lungs bilaterally Awake and alert, defensive mood Results - Labs CBC & Chem 7: 06/02/18 15:35 06/02/18 15:35 Assessment and Plan - Plan 57 year old female admitted with troponin elevation and bradycardia HTN Elevated troponin Bradycardia Cardiology following Bradycardia has been asymptomatic per cardiology conclusion, however patient has refused echocardiogram while cardiology desires it Still will attempt echo. Cardiology has cleared patient to attempt psychotropic medications with follow-up EKG to monitor QTC. Hypokalemia -Stabilized Psychiatric disorder Francisco act in place Psychiatry following, pt does not have MDM, brother authorized all life-saving measures and any lab and image testing. Scheduled p.o. Abilify, and if patient refuses, order is placed so that her skin administer IM Zyprexa 2.5 mg daily Mild Rhabdomyolysis resolved DVT Prophylaxis Lovenox Discharge Planning: Discussed case with cardiology, since the patient has refused the echo 3 times, echocardiogram has been discontinued. Patient's electrolytes have significantly improved. Cardiology has no objections with the patient return to med psych at this time or even psychiatry at this time, just recommended close follow-up of EKG QTc interval. As long as the patient is asymptomatic even with her heart rate in the upper 30s just an EKG is warranted to ensure Qtc hasn't acutely prolonged. If the Pulse in 40s while resting and while her blood pressure is stable, then this is OK. Needs to have VS q4hrs.
[2018-06-02] MEDS: ARIPiprazole 2 MG Tablet PO SCH (14:48)
[2018-06-02 16:06] LABS: Baso # (Auto) 0.1 th/mm3 (0.0-0.2); Baso % (Auto) 1.1 % (0.0-2.0); Eos # (Auto) 0.1 th/mm3 (0.0-0.4); Eos % (Auto) 2.3 % (0.0-4.0); Hematocrit 37.7 % (35.0-46.0); Hemoglobin 13.1 gm/dL (11.6-15.3); Lymph # (Auto) 1.9 th/mm3 (1.0-4.8); Lymph % (Auto) 38.8 % (9.0-44.0); Mean Corpuscular HGB Conc 34.8 % (32.0-36.0); Mean Corpuscular Hemoglobin 30.9 pg (27.0-34.0); Mean Corpuscular Volume 88.8 fL (80.0-100.0); Mean Platelet Volume 9.3 fL (7.0-11.0); Mono # (Auto) 0.6 th/mm3 (0.0-0.9); Mono % (Auto) 11.4 % (0.0-8.0); Neut # (Auto) 2.3 th/mm3 (1.8-7.7); Neut % (Auto) 46.4 % (16.0-70.0); Platelet Count 201 th/mm3 (150-450); Red Blood Count 4.25 mil/mm3 (4.00-5.30)
--- NOTE | 2018-06-02 16:07 | P.PNCA ---
Subjective Interval history: No events overnight Heart rates 40-60 Still refusing some treatments Echo refused for 3rd time Physical Exam Vital signs: Vital Signs 06/01/18 20:00 06/02/18 00:00 06/02/18 08:00 Temperature 97.1 F L 96.1 F L 97.9 F Pulse Rate 45 L 48 L 40 L Respiratory Rate 20 20 18 Blood Pressure 176/76 H 154/69 H 206/90 H Pulse Oximetry 100 95 99 Intake & Output 06/01/18 06/02/18 06/02/18 18:59 06:59 18:59 Intake Total 480 / 480 1014 / 1014 Balance 480 / 480 1014 / 1014 Intake: IV 1014 / 1014 NS Inj 1,000 ML @ 100 mls/hr IV 0 / 0 .CONT .Q10H KATHERIN Rx#:[id number] Oral 480 / 480 Other: # Voids 3 Narrative: GENERAL: NAD SKIN: Warm and dry. HEAD: Atraumatic. Normocephalic. EYES: Pupils equal and round. No scleral icterus. No injection or drainage. ENT: No nasal bleeding or discharge. Mucous membranes pink and moist. NECK: Trachea midline. No JVD. CARDIOVASCULAR: Bradycardia, but regular RESPIRATORY: No accessory muscle use. Clear to auscultation. Breath sounds equal bilaterally. GASTROINTESTINAL: Abdomen soft, non-tender, nondistended. Hepatic and splenic margins not palpable. MUSCULOSKELETAL: Extremities without clubbing, cyanosis, or edema. No obvious deformities. NEUROLOGICAL: Awake and alert. No obvious cranial nerve deficits. Motor grossly within normal limits. Five out of 5 muscle strength in the arms and legs. Normal speech. PSYCHIATRIC: Defensive mood Assessment and Plan - Assessment (1) Bradycardia Code(s): R00.1 - Bradycardia, unspecified Status: Acute (2) Elevated troponin Code(s): R74.8 - Abnormal levels of other serum enzymes Status: Acute (3) LVH (left ventricular hypertrophy) Code(s): I51.7 - Cardiomegaly Status: Acute (4) Hypertensive urgency Code(s): I16.0 - Hypertensive urgency Status: Acute (5) Paranoid type schizophrenia, chronic state Code(s): F20.0 - Paranoid schizophrenia Status: Acute (6) Acute exacerbation of chronic paranoid schizophrenia Code(s): F20.0 - Paranoid schizophrenia Status: Acute - Plan 1) Schizophrenia Francisco Act Psych following the patient 2) Accelerated HTN Patient refusing all meds 3) Mildly elevated troponin Asymptomatic Most likely secondary to accelerated HTN/LVH Patient refused echo for 3rd time, will cancel for now No further work up at this time 4) Asymptomatic bradycardia Possible reaction due to hypertensive urgency vs hypokalemia Heart rates increased after being up to the chair, appears to have chronotropic competency Avoid AV ashia blocking agents 5) QTc prolongation Appears to be including the U-wave in calculation QT more likely 508, making the QTc 462 Ok to attempt psych medications, will need to follow on EKG to watch for prolongation of QTc Otherwise, she will not let us work her up medically to clear her for psych Would make sure electrolytes are replaced
[2018-06-02 16:40] LABS: Anion Gap 7 meq/L (5-15); Blood Urea Nitrogen 12 mg/dL (7-18); Calcium 8.7 mg/dL (8.5-10.1); Carbon Dioxide 30.5 meq/L (21.0-32.0); Chloride 105 meq/L (98-107); Glomerular Filtration Rate Greater Than 89 mL/min (>89); Glucose,Random 82 mg/dL (74-106); Sodium 142 meq/L (136-145)
--- NOTE | 2018-06-02 18:22 | P.DS ---
Date of admission: 05/30/18 18:23 Primary care physician: UNKNOWN Brief History from admission: Ms. Lowe is a 57-year-old female with a history of schizophrenia who was transferred to the medical floor from the psychiatric unit after experiencing bradycardia in the setting of troponin elevation. She is presently under a completed petition for involuntary psychiatric hospitalization. DS: Medications - Discharge Medications Prescriptions: potassium chloride 16 meq PO DAILY #30 cap DS: Summary Hospital Course: DC to psychiatry. Check V/S q4 hrs. Ensure pt is asymptomatic from any bradycardia. No further workup apart from echocardiogram recommended as long as pt is asymptomatic from her bradycardia. Discussed case with cardiology, since the patient has refused the echo 3 times, echocardiogram has been discontinued. Patient's electrolytes have significantly improved. Cardiology has no objections with the patient return to med psych at this time or even psychiatry at this time, just recommended close follow-up of EKG QTc interval. As long as the patient is asymptomatic even with her heart rate in the upper 30s just an EKG is warranted to ensure Qtc hasn't acutely prolonged. If the Pulse in 40s while resting and while her blood pressure is stable, then this is OK. Needs to have VS q4hrs. Case d/w psychiatry. - Time Spent with Patient Total time spent providing and/or coordinating discharge services: Less than 30 minutes Exam Vital signs: Vital Signs 06/01/18 20:00 06/02/18 00:00 06/02/18 08:00 Temperature 97.1 F L 96.1 F L 97.9 F Pulse Rate 45 L 48 L 40 L Respiratory Rate 20 20 18 Blood Pressure 176/76 H 154/69 H 206/90 H Pulse Oximetry 100 95 99 Intake & Output 06/01/18 06/02/18 06/02/18 18:59 06:59 18:59 Intake Total 480 / 480 1014 / 1014 Balance 480 / 480 1014 / 1014 Intake: IV 1014 / 1014 NS Inj 1,000 ML @ 100 mls/hr IV 0 / 0 .CONT .Q10H KATHERIN Rx#:[id number] Oral 480 / 480 Other: # Voids 3 Narrative: 2/6 ejection murmur No lower extremity edema Unlabored breathing, clear lungs bilaterally Awake and alert, defensive mood Results Procedures completed during hospitalization: . Labs on day of discharge: Labs from last 24 hours 06/02/18 06/02/18 15:35 15:35 WBC 5.0 RBC 4.25 Hgb 13.1 Hct 37.7 MCV 88.8 MCH 30.9 MCHC 34.8 RDW 14.0 Plt Count 201 MPV 9.3 Neut % (Auto) 46.4 Lymph % (Auto) 38.8 [place] % (Auto) 11.4 H Eos % (Auto) 2.3 Baso % (Auto) 1.1 Neut # (Auto) 2.3 Lymph # (Auto) 1.9 [place] # (Auto) 0.6 Eos # (Auto) 0.1 Baso # (Auto) 0.1 WBC Differential . Differential Comment Auto diff final Sodium 142 Potassium 3.8 Chloride 105 Carbon Dioxide 30.5 Anion Gap 7 BUN 12 Creatinine 0.78 Estimated GFR Greater than 89 Random Glucose 82 Calcium 8.7 Discharge Plan - Discharge Disposition Patient Disposition: [facility] Disc To [facility] - Discharge Condition Condition: Stable - Discharge Order Discharge Orders: Discharge Order (Routine); Ordered 06/02/18 Ordered By: Reno Shine - Physicians Team Primary Care Provider: UNKNOWN, Attending Provider: Reno Shine Other Providers: Raffaele Lowe MD ; Jose Luis Gorman MD - Rxs /Orders / Referrals /Forms Prescriptions: New amlodipine [Norvasc] 5 mg Tablet 5 mg PO DAILY Qty: 0 RF: 0 aripiprazole [Abilify] 2 mg Tablet 2 mg PO DAILY RF: 0 aspirin 325 mg Tablet 325 mg PO DAILY RF: 0 clonidine HCl [Catapres] 0.1 mg Tablet 0.1 mg PO Q6H PRN (Reason: Sys Bp Greater Than 160 Mmhg) RF: 0 olanzapine [Zyprexa] 10 mg Recon Soln 2.5 mg IM DAILY PRN (Reason: prn refusal of abilify) RF: 0 potassium chloride 8 mEq Capsule, Extended Release 16 meq PO DAILY Qty: 30 RF: 0 Referrals: UNKNOWN, [Primary Care Provider] - See Instructions - Discharge Instructions Patient Printed Instructions: Schizophrenia (ED), Schizophrenia (DC) - Post Discharge Care Plan Care Plan Goals: Your Health Problems: Goals to Promote Your Health: * To prevent worsening of your condition * To maintain your health at the optimal level Directions to Meet Your Goals: * Take your medications as prescribed * Follow your dietary instruction * Follow activity as directed * Keep your appointments as scheduled * Take your immunizations and boosters as scheduled * If your symptoms worsen call your PCP * If no PCP go to Urgent Care or Emergency Room Smoking is dangerous to your health. Avoid second hand smoke. You may reach the 24-hour crisis hotline for domestic abuse at .
[2018-06-02 21:06] VITALS: BP 172/95; PULSE 60; TEMP 97.8; O2SAT 96
[2018-06-02] MEDS: Enoxaparin Inj 40 MG/0.4 ML Syringe SQ SCH (21:55)
[2018-06-02 22:21] LABS: Alanine Aminotransferase 21 U/L (10-53); Albumin 3.3 g/dL (3.4-5.0); Aspartate Aminotransferase 26 U/L (15-37)
[2018-06-02 22:23] LABS: Alkaline Phosphatase 78 U/L (45-117); Total Protein 7.2 g/dL (6.4-8.2); Troponin I 0.08 ng/mL (0.02-0.05)
[2018-06-02 22:24] LABS: Potassium 3.8 meq/L (3.5-5.1)
--- NOTE | 2018-06-03 08:40 | P.PNPSY ---
Case signed out to Dr. Cochran @0830 06/03/18. He will assume the psychiatric consultative role.
[2018-06-03] MEDS: ARIPiprazole 2 MG Tablet PO SCH (12:04)
[2018-06-03] MEDS: Sod Chloride 0.9% Inj 1,000 ML IV.CONT SCH (12:05)
[2018-06-03] MEDS: Aspirin 325 MG Tablet PO SCH (12:05)
[2018-06-03] MEDS: amLODIPine 5 MG Tablet PO SCH (12:05)
[2018-06-03] MEDS: Famotidine 20 MG Tablet PO SCH (12:05)
[2018-06-03] MEDS: Senna/Docusate Sodium 8.6/50 MG Tablet PO SCH (12:05)
--- NOTE | 2018-06-03 16:13 | P.PNCA ---
Subjective Interval history: No events over night Heart rates around 60s now potassium corrected Angry at me as she feels we lost her gold earrings Physical Exam Vital signs: Vital Signs 06/02/18 20:00 Temperature 97.8 F Pulse Rate 60 Respiratory Rate 18 Blood Pressure 172/95 H Pulse Oximetry 96 Intake & Output 06/02/18 06/03/18 06/03/18 18:59 06:59 18:59 Intake Total 1494 / 1494 1600 / 1600 480 / 480 Balance 1494 / 1494 1600 / 1600 480 / 480 Weight 61.3 kg Intake: IV 1014 / 1014 1600 / 1600 NS Inj 1,000 ML @ 100 mls/hr IV 0 / 0 1600 / 1600 .CONT .Q10H KATHERIN Rx#:[id number] Oral 480 / 480 480 / 480 Other: # Voids 3 # Urine Diapers 4 Date of Last Bowel Movement 06/03/18 # Bowel Movements 1 Narrative: GENERAL: NAD SKIN: Warm and dry. HEAD: Atraumatic. Normocephalic. EYES: Pupils equal and round. No scleral icterus. No injection or drainage. ENT: No nasal bleeding or discharge. Mucous membranes pink and moist. NECK: Trachea midline. No JVD. CARDIOVASCULAR: Regular rate and rhythm. RESPIRATORY: No accessory muscle use. Clear to auscultation. Breath sounds equal bilaterally. GASTROINTESTINAL: Abdomen soft, non-tender, nondistended. Hepatic and splenic margins not palpable. MUSCULOSKELETAL: Extremities without clubbing, cyanosis, or edema. No obvious deformities. NEUROLOGICAL: Awake and alert. No obvious cranial nerve deficits. Motor grossly within normal limits. Five out of 5 muscle strength in the arms and legs. Normal speech. PSYCHIATRIC: Defensive Assessment and Plan - Assessment (1) Bradycardia Code(s): R00.1 - Bradycardia, unspecified Status: Acute (2) Elevated troponin Code(s): R74.8 - Abnormal levels of other serum enzymes Status: Acute (3) LVH (left ventricular hypertrophy) Code(s): I51.7 - Cardiomegaly Status: Acute (4) Hypertensive urgency Code(s): I16.0 - Hypertensive urgency Status: Acute (5) Paranoid type schizophrenia, chronic state Code(s): F20.0 - Paranoid schizophrenia Status: Acute (6) Acute exacerbation of chronic paranoid schizophrenia Code(s): F20.0 - Paranoid schizophrenia Status: Acute - Plan 1) Schizophrenia Francisco Act Psych following the patient 2) Accelerated HTN Patient refusing all meds 3) Mildly elevated troponin Asymptomatic Most likely secondary to accelerated HTN/LVH Patient refused echo for 3rd time, will cancel for now No further work up at this time 4) Asymptomatic bradycardia Possible due to hypokalemia Heart rates increased after being up to the chair, appears to have chronotropic competency Also better with potassium back to normal Avoid AV ashia blocking agents 5) QTc prolongation Appears to be including the U-wave in calculation QT more likely 508, making the QTc 462 Ok to attempt psych medications, will need to follow on EKG to watch for prolongation of QTc Otherwise, she will not let us work her up medically to clear her for psych Would make sure electrolytes are replaced
--- NOTE | 2018-06-03 20:32 | ECG ---
Date Performed: 06/03/2018 Time Performed: 19:43:19 PTAGE: 57 years EKG: Sinus rhythm POSSIBLE SEPTAL MYOCARDIAL INFARCTION , OF INDETERMINATE AGE Nonspecific ST changes ABNORMAL ECG Com pared to prior electrocardiogram, Prior EKG has marked artifact. Rate has increased and possible sept al infarct is present. PREVIOUS TRACING : 05/30/2018 13.44 DOCTOR: Wilbur Cat Interpretating Date/Time 06/03/2018 20:31:05
== END 2018-06-03 16:18 ==
LOC: N04 18:23 → EDBD 18:23
PROVIDERS: ADMIT Hospitalist; ATTEND Hospitalist

== ENCOUNTER 2018-06-03 17:16 | Inpatient (IN) ==
[2018-06-03] MEDS ORDERED: Bisacodyl 10 MG Supp RECTAL PRN (18:32)
[2018-06-03] MEDS ORDERED: Aluminum/Magnesium/Simethacone Susp 30 ML UDC PO PRN (18:32)
[2018-06-03] MEDS: Senna/Docusate Sodium 8.6/50 MG Tablet PO SCH (20:18)
[2018-06-04] MEDS ORDERED: ARIPiprazole 2 MG Tablet PO SCH (09:00)
[2018-06-04] MEDS: Senna/Docusate Sodium 8.6/50 MG Tablet PO SCH ×2 (09:32→20:40)
[2018-06-04] MEDS: amLODIPine 5 MG Tablet PO SCH (09:32)
--- NOTE | 2018-06-04 10:20 | P.PNPSY ---
Subjective Remarks: Patient returns from the medical floor. Please see my H&P dated 05/30/18 under [id number]. Patient seen and examined with counselor and nurse. Chart reviewed. Case discussed with nursing staff. Patient quite disruptive this morning, issuing racial slurs towards staff. I ordered the patient medicated with Zyprexa and Benadryl ETO. Case discussed in treatment team. On my examination somewhat later in the morning, the patient remains paranoid with a distinct irritable edge. She believes that she may be poisoned. She continues to exhibit a racial preoccupation. She is unable to tolerate extended interview and asks us to leave after a relatively brief interaction. No evident side effects from medications. No physical complaints. I have called brother/HCS [facility] at [phone] to try to discuss plan of care and obtain med consents. This number keeps ringing with no opportunity to leave VM. Vital Signs Temp Pulse Resp BP Pulse Ox 06/04/18 06:29 97.9 F 52 L 17 182/84 H 96 06/03/18 17:29 98.3 F 52 L 17 191/77 H 97 Intake and Output 06/03/18 06/04/18 06/04/18 22:59 06:59 14:59 Other: Weight 64.7 kg Weight On Admission 64.7 kg Laboratory Tests 05/31/18 05/31/18 06/02/18 14:44 14:44 15:35 WBC 5.0 Hgb 13.1 Plt Count 201 Sodium Potassium Chloride Carbon Dioxide BUN Creatinine Estimated GFR Random Glucose AST ALT Alkaline Phosphatase Ammonia 42 H TSH 0.193 L Free T4 1.09 06/02/18 15:35 WBC Hgb Plt Count Sodium 142 Potassium 3.8 Chloride 105 Carbon Dioxide 30.5 BUN 12 Creatinine 0.78 Estimated GFR Greater than 89 Random Glucose 82 AST 26 ALT 21 Alkaline Phosphatase 78 Ammonia TSH Free T4 Review of Systems All other systems reviewed negative except as stated in HPI (Limitation: Psychosis) Mental Status Examination Appearance: Appropriate Consciousness: Alert, Vigilant Orientation: Person, Place (At least) Motor Activity: Other (No motor abnormalities noted) Speech: Unremarkable Language: Adequate Fund of Knowledge: Adequate Attention and Concentration: Easily distracted Memory: Unremarkable Mood: Irritable Affect: Irritable, Other (Dysphoric) Thought Process & Associations: Circumstantial Thought Content: Delusional Hallucination Type: None Delusion Type: Paranoid Suicidal Ideation: No (No SI voiced) Homicidal Ideation: No (No HI voiced) Insight: Poor Judgment: Poor Assessment and Plan - Assessment (1) Acute exacerbation of chronic paranoid schizophrenia Code(s): F20.0 - Paranoid schizophrenia Status: Acute - Plan Plan: Patient remains severely decompensated with respect to her psychotic illness and requires ongoing psychiatric hospitalization for safety and stabilization. Admit inpatient. Patient has completed petition for involuntary psychiatric hospitalization and case will be heard at [employer] [address] this . Scheduled psychotropic medications are on hold pending consent from healthcare surrogate. Check BMP and magnesium to monitor electrolytes. Check EKG for QTC following ETO administration this morning. Hospitalist consultation. Vitals every 4 hours. Counselor to see. Disposition planning. Estimated length of stay: 7-9 days. Justification for Continued Inpatient Stay: Impairment in reality construction. Impairment in self-care. High risk for decompensation in less restrictive environment. Discharge Planning: Pending psychiatric stabilization. Request Healthcare Surrogate/Guardian Advocate?: Yes
[2018-06-05] MEDS: amLODIPine 5 MG Tablet PO SCH (08:25)
[2018-06-05] MEDS: Senna/Docusate Sodium 8.6/50 MG Tablet PO SCH ×2 (08:25→20:36)
--- NOTE | 2018-06-05 11:26 | P.PNPSY ---
Subjective Remarks: Patient seen and examined with counselor. Chart reviewed. Case discussed with nursing staff. Case discussed with counselor. I tried without success this morning to reach patient's brother at the number listed in the contact page of the EMR as well as at the number obtained by the counselor during previous admission. I have asked the counselor to try to contact any of patient's family members so that we might begin medication treatment, but he has not had any success either. On my examination today, the patient remains irritable and paranoid. I have discussed with her the importance of obtaining laboratories, which she has refused, and the risk of morbidity associated with laboratory refusal (e.g. secondary to undetected laboratory abnormality). Patient says of this risk "it does not matter." She seems in particular paranoid about giving blood and alludes to people taking her "good blood" when she was in a correctional setting in the past. She is upset about the notice of [employer] hearing paperwork and calls this "illegal paperwork." I try to discuss with her her legal status, but she is not listening. No physical complaints. Vital Signs Pulse Resp BP Pulse Ox 06/04/18 23:21 65 18 189/84 H 98 06/04/18 19:30 55 L 18 177/80 H Labs reviewed. No new labs. Review of Systems unobtainable due to mental condition (Limitation: Psychosis) Mental Status Examination Appearance: Appropriate Consciousness: Alert, Vigilant Orientation: Person, Place (At least) Motor Activity: Other (No abnormal motor movements noted) Speech: Unremarkable Language: Adequate Fund of Knowledge: Adequate Attention and Concentration: Easily distracted Memory: Unremarkable Mood: Irritable Affect: Irritable, Other (Remains dysphoric) Thought Process & Associations: Circumstantial Thought Content: Delusional Hallucination Type: None Delusion Type: Paranoid Suicidal Ideation: No (No SI voiced) Homicidal Ideation: No (No HI voiced) Insight: Poor Judgment: Poor Assessment and Plan - Assessment (1) Acute exacerbation of chronic paranoid schizophrenia Code(s): F20.0 - Paranoid schizophrenia Status: Acute - Plan Plan: Psychotropic medications remain on hold for lack of consent. Await [place] tomorrow. Given difficulties in contacting family, may request CHANDU MAC as alternate. Await hospitalist consultation. Continue to monitor on the inpatient unit. Continue other medications and care as ordered. Justification for Continued Inpatient Stay: Impairment in reality construction. High risk for decompensation in less restrictive setting. Discharge Planning: Pending outcome of [place]. Request Healthcare Surrogate/Guardian Advocate?: Yes
--- NOTE | 2018-06-05 14:26 | P.CON ---
History of Present Illness Service: [facility] Consult date: 06/04/18 Requesting Physician: Jose Luis Gorman Reason for Consult: Bradycardia, HTN Primary Care Provider: UNKNOWN Chief Complaint: Bradycardia, HTN History of Present Illness: Patient is a 57-year-old -Citizen Of [place] female with medical history of HTN who initially came into the hospital under vargas act for psychiatric evaluation. She was transferred from the medical floor from the psychiatric unit after experiencing bradycardia in the setting of troponin elevation. Patient had refused echocardiogram 3. Cardiology has followed the patient in the inpatient setting and is agreed to transfer the patient to psychiatry unit with close follow-up and monitoring of QTC. She is not admitted back to inpatient psychiatry unit for further evaluation and control of her psychiatric disorder. Consulted for assistance and closer monitoring of cardiac function. Patient seen today sitting in a chair. Patient states that there is nothing wrong with her. I have introduced myself to the patient and the patient states she does not need to be seen. "I am doing okay, I have high blood pressure, but I do not need anyone to see me. I do not want to be examined. I do not to be ask any questions. Please walk away and step away from me." Patient appears to be becoming aggressive and her behavior. I have stepped away. Review of Systems All other systems reviewed negative except as stated in HPI PMFSH - History History Provided By: Patient - Medical / Surgical Hx Neg / Unobtainable Surgical History: No Previous Surgery - Medical History Medical History: Medical History (Last Updated 06/05/18 @ 16:55 by ROSSANA Cloud) Surgical history unknown (Acute) Medical history unknown (Acute) HTN (hypertension) Psychiatric disorder - Family History Family History: Family History (Last Updated 05/30/18 @ 17:42 by Alexandro Baez DO) Other Family history of hypertension - Tobacco History Smoking Status: Refused to answer - Alcohol History How Often Do You Have a Drink Containing Alcohol: Unable to Obtain - Substance Use History Substance History: Unable to Obtain - Travel History Recent Travel in the [place] Within the Last 8 Weeks: No Recent Travel Out of the Country Within the Last 8 Weeks: No Medications and Allergies Active Medications: Active Medications Al Hydrox/Mg Hydrox/Simethicone (Mag-Al Plus Susp Liq) 30 ml PO Q6H PRN PRN Reason: DYSPEPSIA Al Hydroxide/Mg Hydroxide (Milk Of Magnesia Liq) 30 ml PO Q12H PRN PRN Reason: Mild Constipation Amlodipine Besylate (Norvasc) 5 mg PO DAILY [facility] Last Admin: 06/05/18 08:25 Dose: 5 mg Aripiprazole (Abilify) 2 mg PO DAILY [facility] Last Admin: 06/04/18 09:33 Dose: 2 mg Bisacodyl (Dulcolax Supp) 10 mg RECTAL DAILY PRN PRN Reason: SEVERE CONSITIPATION Hydralazine HCl (Apresoline) 25 mg PO BID [facility] Lactulose (Lactulose Liq) 30 ml PO DAILY PRN PRN Reason: SEVERE CONSITIPATION Senna/Docusate Sodium (Kellie-Colace) 1 tab PO BID [facility] Last Admin: 06/05/18 08:25 Dose: Not Given Sennosides (Senokot) 17.2 mg PO Q12H PRN PRN Reason: Moderate Constipation Allergies Allergy/AdvReac Type Severity Reaction Status Date / Time lisinopril Allergy Unknown Bradycardia Verified 05/29/18 17:17 orange juice Allergy Unknown Swelling Verified 05/29/18 17:17 of Lip/Tongue/Throat Physical Exam Vital signs: Vital Signs 06/04/18 19:30 06/04/18 23:21 Pulse Rate 55 L 65 Respiratory Rate 18 18 Blood Pressure 177/80 H 189/84 H Pulse Oximetry 98 Narrative: GENERAL: This is a well-nourished, well-developed patient, in no apparent distress. HEENT: Normocephalic. Nose without bleeding. Airway patent. NECK: Trachea midline. NEUROLOGICAL: Awake and alert. Moves all extremities. Normal speech. Assessment and Plan - Plan Patient is a 57-year-old -Citizen Of [place] female with medical history of HTN who initially came into the hospital under vargas act for psychiatric evaluation. She was transferred from the medical floor from the psychiatric unit after experiencing bradycardia in the setting of troponin elevation. Patient had refused echocardiogram 3. Cardiology has followed the patient in the inpatient setting and is agreed to transfer the patient to psychiatry unit with close follow-up and monitoring of QTC. She is not admitted back to inpatient psychiatry unit for further evaluation and control of her psychiatric disorder. Consulted for assistance and closer monitoring of cardiac function. Schizophrenia, paranoia -Managed by psychiatry team HTN, uncontrolled -on Norvasc 5 mg daily. Will add hydralazine twice daily low dose. -Patient continues to refuse medications on and off. -She took the medication today as per nursing -Continue to monitor BP trend Symptomatic bradycardia History of elevated troponin -Elevated troponin most likely secondary to HTN, left ventricular hypertrophy. Patient has refused echocardiogram 3 times in the inpatient setting. -Cardiology has followed the patient in a workup to be done at this time. -Monitor electrolytes. -Avoid AV ashia blocking agents -Monitor heart rate. Significantly improved compared to the inpatient setting QTC prolongation -As per cardiology QTC 462. Okay for psych medication to start. -May need EKG intermittently while on Psych meds. She has been refusing cardiac work up -Monitor QTc. Check EKG. DVT Prop Ambulation Code Status: Full code Discussed Condition With: Patient, nurse Discharge Planning: DC disposition by primary team
[2018-06-05] MEDS: hydrALAZINE 25 MG Tablet PO SCH (20:37)
[2018-06-06] MEDS: amLODIPine 5 MG Tablet PO SCH (08:13)
[2018-06-06] MEDS: hydrALAZINE 25 MG Tablet PO SCH ×2 (08:14→21:00)
[2018-06-06] MEDS: Senna/Docusate Sodium 8.6/50 MG Tablet PO SCH ×2 (08:14→21:00)
--- NOTE | 2018-06-06 10:06 | P.PNPSY ---
Subjective Remarks: Patient seen and case discussed with nursing staff. Chart reviewed. For me today, patient remains paranoid, particularly surrounding blood and blood draws. Racial preoccupation persists. Patient becomes quite hostile with [address] security management specialist. Patient was retained on the unit by the security management specialist with joint guardian advocate: brother and CHANDU MAC. No acute physical complaints. I endeavored without success to reach patient's brother at both numbers we have on file. I have therefore reached out to CHANDU MAC for consents today. I have briefed CHANDU MAC on the case including cardiac concerns. CHANDU MAC provides consent for meds as detailed below and also provides consent to temporarily restrained patient if needed for labs and EKG. Vital Signs Temp Pulse Resp BP Pulse Ox 06/05/18 20:35 99.9 F H 58 L 16 148/69 H 99 06/05/18 16:43 98.4 F 99 H 18 170/74 H 99 Labs reviewed. No new labs. Review of Systems other (Limited ROS today) Mental Status Examination Appearance: Appropriate Consciousness: Alert, Vigilant Orientation: Person, Place (At least) Motor Activity: Other (No abnormal motor movements appreciated) Speech: Unremarkable Language: Adequate Fund of Knowledge: Adequate Attention and Concentration: Easily distracted Memory: Unremarkable Mood: Oppositional, Irritable Affect: Irritable, Other (Remains dysphoric) Thought Process & Associations: Circumstantial Thought Content: Delusional Hallucination Type: None Delusion Type: Paranoid Suicidal Ideation: No (No SI voiced) Homicidal Ideation: No (No HI voiced) Insight: Poor Judgment: Poor Assessment and Plan - Assessment (1) Acute exacerbation of chronic paranoid schizophrenia Code(s): F20.0 - Paranoid schizophrenia Status: Acute - Plan Plan: Start Abilify 5mg p.o. qHS with Zyprexa 5mg IM qHS p.r.n. refuses p.o. Abilify. Plan to titrate antipsychotic to effect. Check electrolytes. Will try to keep K>4 and Mg>2 to minimize risk of arrhythmia with antipsychotic therapy. Plan to check an EKG in the morning to monitor QTc (N.B. Cardiology suspects EKG included U-waves in QTc calculation, making QTc spuriously long). Low-dose Ativan as needed or anxiety. Hold off on scheduled or p.r.n. anticholinergic at this time given bradycardia issue earlier in hospital stay. Hospitalist input noted and appreciated. Continue to monitor on the inpatient unit. Continue other medications and care as ordered. Justification for Continued Inpatient Stay: Impairment in reality construction. Medication changes. High risk for decompensation in less restrictive environment. Discharge Planning: Pending psychiatric stabilization. Request Healthcare Surrogate/Guardian Advocate?: Yes
[2018-06-06] MEDS ORDERED: LORazepam 0.5 MG Tablet PO PRN (15:26)
--- NOTE | 2018-06-06 15:36 | P.PNADD ---
Addendum to Inpatient Note Reason for Addendum: Additional Documentation Additional information: Patient continues to refuse medication, diagnostic evaluation including labs and EKG. She took her BP meds with nursing but does not want her VS to be checked. Will monitor peripherally for now as she keeps refusing visits.
[2018-06-06 17:29] LABS: Calcium 9.7 mg/dL (8.5-10.1); Carbon Dioxide 29.3 meq/L (21.0-32.0); Magnesium 2.2 mg/dL (1.5-2.5); Potassium 3.4 meq/L (3.5-5.1)
[2018-06-06] MEDS: ARIPiprazole 5 MG Tablet PO SCH (21:00)
[2018-06-07] MEDS: hydrALAZINE 25 MG Tablet PO SCH ×3 (10:16→21:24)
[2018-06-07] MEDS: amLODIPine 5 MG Tablet PO SCH (10:17)
[2018-06-07] MEDS: Senna/Docusate Sodium 8.6/50 MG Tablet PO SCH ×2 (10:19→21:24)
--- NOTE | 2018-06-07 14:10 | P.PN ---
Subjective Interval history: Follow-up visit HTN, elevated troponin, bradycardia, QT prolongation, schizophrenia. Patient seen and examined today. Patient is calm and able to participate with examination. States she has pain on her right side that comes and goes, relieved by positioning. Denies SOB/ dyspnea. Denies chest pain, palpitations, headaches, dizziness. Denies fevers, chills, n/v/d. Denies dysuria. Physical Exam Vital signs: Vital Signs 06/06/18 18:15 06/07/18 06:00 Temperature 98.6 F 97.3 F L Pulse Rate 60 54 L Respiratory Rate 17 16 Blood Pressure 187/82 H 138/69 Pulse Oximetry 100 98 Narrative: GENERAL: This is a well-nourished, well-developed patient, in no apparent distress. SKIN: Warm and dry. HEENT: Normocephalic. Pupils equal round and reactive. Nose without bleeding. Airway patent. NECK: Trachea midline. Supple. CARDIOVASCULAR: Regular rate and rhythm without murmurs, gallops, or rubs. RESPIRATORY: Clear to auscultation. Breath sounds equal bilaterally. No wheezes , rales, or rhonchi. GASTROINTESTINAL: Abdomen soft, nondistended. Bowel Sounds normoactive x4. Mild tenderness to palpate right flank side. MUSCULOSKELETAL: Extremities without clubbing, cyanosis. Bilateral lower extremity trace edema NEUROLOGICAL: Awake and alert. Oriented to place, person. No focal neuro deficit. Moves all extremities. Normal speech. Results - Labs CBC & Chem 7: 06/06/18 16:50 Laboratory Results - last 24 hr 06/06/18 16:50 Sodium 141 Potassium 3.4 L Chloride 104 Carbon Dioxide 29.3 Anion Gap 8 BUN 16 Creatinine 0.85 Estimated GFR 83 L Random Glucose 91 Calcium 9.7 Magnesium 2.2 Assessment and Plan - Plan Patient is a 57-year-old -[place] female with medical history of HTN who initially came into the hospital under vargas act for psychiatric evaluation. She was transferred from the medical floor from the psychiatric unit after experiencing bradycardia in the setting of troponin elevation. Patient had refused echocardiogram 3. Cardiology has followed the patient in the inpatient setting and is agreed to transfer the patient to psychiatry unit with close follow-up and monitoring of QTC. She is not admitted back to inpatient psychiatry unit for further evaluation and control of her psychiatric disorder. Consulted for assistance and closer monitoring of cardiac function. Schizophrenia, paranoia -Managed by psychiatry team HTN, uncontrolled -on Norvasc 5 mg daily. Will add hydralazine twice daily low dose. -Patient continues to refuse medications on and off. -Continue to monitor BP trend -Improving if patient agrees to take medications Symptomatic bradycardia History of elevated troponin -Elevated troponin most likely secondary to HTN, left ventricular hypertrophy. Patient has refused echocardiogram 3 times in the inpatient setting. -Cardiology has followed the patient in a workup to be done at this time. -Monitor electrolytes. -Avoid AV ashia blocking agents -Monitor heart rate. Improved compared to the inpatient setting QTC prolongation -As per cardiology QTC 462. Okay for psych medication to start. -May need EKG intermittently while on Psych meds. She has been refusing cardiac work up -Monitor QTc. -Status EKG reviewed, sinus bradycardia with heart rate 58. QTC 465. -Patient should have intermittent EKG if on antipsychotics. DVT Prop Ambulation Stable from Hospitalist standpoint. We will sign off. Reconsult as needed. Code Status: Full code Discussed Condition With: Patient, nursing Discharge Planning: DC disposition by primary team
[2018-06-07] MEDS: Acetaminophen 325 MG Tablet PO PRN ×2 (15:17→23:00)
--- NOTE | 2018-06-07 15:20 | P.PNPSY ---
Subjective Remarks: Patient seen for follow up; chart reviewed. Discussion with nursing staff reported patient angry she is in the hospital, allowed to have EKG done. Patient was found lying hospital bed noted B, cooperative with interview today. Patient states that she slept well, reported having attended groups and is considering. Patient reports her mood has been "good" reports tolerating medications well denies any perceptional services or delusions at this time. Patient continues to be noted to be guarded. Review of Systems All other systems reviewed negative except as stated in HPI Mental Status Examination Appearance: Appropriate Consciousness: Alert, Vigilant Orientation: Person, Place (At least) Motor Activity: Other (No abnormal motor movements appreciated) Speech: Unremarkable Language: Adequate Fund of Knowledge: Adequate Attention and Concentration: Easily distracted Memory: Unremarkable Mood: Irritable (Less today) Affect: Irritable Thought Process & Associations: Circumstantial Thought Content: Delusional Hallucination Type: None Delusion Type: Paranoid Suicidal Ideation: No Suicidal Plan: No Suicidal Intention: No Homicidal Ideation: No Homicidal Plan: No Homicidal Intention: No Insight: Poor Judgment: Poor Assessment and Plan - Assessment (1) Acute exacerbation of chronic paranoid schizophrenia Code(s): F20.0 - Paranoid schizophrenia Status: Acute - Plan Plan: Patient this time continues to be noted to be guarded, irritable, but tolerating medications well continue current treatment. Continue to monitor mood and behavior. Hospitalist input appreciated. Patient did agree to EKG today. Discharge planning in progress. Justification for Continued Inpatient Stay: At risk of further decompensation at lower level of care. Request Healthcare Surrogate/Guardian Advocate?: Yes
--- NOTE | 2018-06-07 16:02 | P.PN ---
Subjective Interval history: Follow up visit HTN, bradycardia, QTc prolongation, NSTEMI, schizophrenia. Patient seen and examined today. Reports Right sided pain on her ribs, states tolerable does not want any medications. Denies SOB/ dyspnea. Denies chest pain, palpitations, headaches, dizziness. Denies fevers, chills, n/v/d. Denies dysuria. Physical Exam Vital signs: Vital Signs 06/06/18 18:15 06/07/18 06:00 Temperature 98.6 F 97.3 F L Pulse Rate 60 54 L Respiratory Rate 17 16 Blood Pressure 187/82 H 138/69 Pulse Oximetry 100 98 Narrative: GENERAL: This is a well-nourished, well-developed patient, in no apparent distress. SKIN: Warm and dry. HEENT: Normocephalic. Pupils equal round and reactive. Nose without bleeding. Airway patent. NECK: Trachea midline. Supple. CARDIOVASCULAR: Regular rate and rhythm without murmurs, gallops, or rubs. RESPIRATORY: Clear to auscultation. Breath sounds equal bilaterally. No wheezes , rales, or rhonchi. GASTROINTESTINAL: Abdomen soft, nondistended. Bowel Sounds normoactive x4. Mild tenderness to palpate right flank side. MUSCULOSKELETAL: Extremities without clubbing, cyanosis. Bilateral lower extremity trace edema NEUROLOGICAL: Awake and alert. Oriented to place, person. No focal neuro deficit. Moves all extremities. Normal speech. Results - Labs CBC & Chem 7: 06/06/18 16:50 Laboratory Results - last 24 hr 06/06/18 16:50 Sodium 141 Potassium 3.4 L Chloride 104 Carbon Dioxide 29.3 Anion Gap 8 BUN 16 Creatinine 0.85 Estimated GFR 83 L Random Glucose 91 Calcium 9.7 Magnesium 2.2 Assessment and Plan - Plan Patient is a 57-year-old -[place] female with medical history of HTN who initially came into the hospital under vargas act for psychiatric evaluation. She was transferred from the medical floor from the psychiatric unit after experiencing bradycardia in the setting of troponin elevation. Patient had refused echocardiogram 3. Cardiology has followed the patient in the inpatient setting and is agreed to transfer the patient to psychiatry unit with close follow-up and monitoring of QTC. She is not admitted back to inpatient psychiatry unit for further evaluation and control of her psychiatric disorder. Consulted for assistance and closer monitoring of cardiac function. Schizophrenia, paranoia -Managed by psychiatry team HTN, uncontrolled -on Norvasc 5 mg daily. Hydralazine twice daily low dose. -Patient continues to refuse medications on and off. -Continue to monitor BP trend Symptomatic bradycardia History of elevated troponin -Elevated troponin most likely secondary to HTN, left ventricular hypertrophy. Patient has refused echocardiogram 3 times in the inpatient setting. -Cardiology has followed the patient in a workup to be done at this time. -Monitor electrolytes. -Avoid AV ashia blocking agents -Monitor heart rate. Significantly improved compared to the inpatient setting QTC prolongation -As per cardiology QTC 462. Okay for psych medication to start. -May need EKG intermittently while on Psych meds. She has been refusing cardiac work up -Monitor QTc. EKG repeat QTc 468. Monitor EKG Intermittently. DVT Prop Ambulation Code Status: Full Code Discussed Condition With: Patient, nursing Discharge Planning: DC disposition by primary team
[2018-06-07] MEDS: ARIPiprazole 5 MG Tablet PO SCH (21:23)
[2018-06-08] MEDS: amLODIPine 5 MG Tablet PO SCH (08:24)
[2018-06-08] MEDS: Senna/Docusate Sodium 8.6/50 MG Tablet PO SCH ×2 (09:00→21:10)
[2018-06-08] MEDS: hydrALAZINE 25 MG Tablet PO SCH ×2 (09:00→21:10)
--- NOTE | 2018-06-08 11:34 | P.PNPSY ---
Subjective Remarks: Pt seen and discussed with staff. Chart reviewed. Pt was admitted for psychosis. She has been compliant with medications, but insight into need for them is poor. She has been intermittently agitated and disruptive on unit at times, but per staff, is improving. She threatens to slap MD if MD lies to her. She is quite paranoid and accuses Dr. Gorman of telling lies in court. Mental Status Examination Appearance: Appropriate Consciousness: Alert, Vigilant Orientation: Person, Place (At least) Motor Activity: Other (No abnormal motor movements appreciated) Speech: Unremarkable Language: Adequate Fund of Knowledge: Adequate Attention and Concentration: Easily distracted Memory: Unremarkable Mood: Irritable Affect: Irritable Thought Process & Associations: Circumstantial Thought Content: Delusional Hallucination Type: None Delusion Type: Paranoid Suicidal Ideation: No Suicidal Plan: No Suicidal Intention: No Homicidal Ideation: No Homicidal Plan: No Homicidal Intention: No Insight: Poor Judgment: Poor Assessment and Plan - Assessment (1) Acute exacerbation of chronic paranoid schizophrenia Code(s): F20.0 - Paranoid schizophrenia Status: Acute - Plan Plan: Continue current tx plan Justification for Continued Inpatient Stay: impairments in safety and reality testing Request Healthcare Surrogate/Guardian Advocate?: Yes
--- NOTE | 2018-06-08 14:52 | ECG ---
Date Performed: 06/07/2018 Time Performed: 09:46:39 PTAGE: 57 years EKG: SINUS BRADYCARDIA LEFT VENTRICULAR HYPERTROPHY AND ST-T CHANGE When compared to previous tr acing, the QRS voltage is slightly Increased and the ST-T changes are new. ABNORMAL ECG PREVIOUS TRACING : 06/03/2018 19.43 DOCTOR: Claudy Menchaca Interpretating Date/Time 06/08/2018 14:52:00
[2018-06-08] MEDS: Acetaminophen 325 MG Tablet PO PRN (16:29)
[2018-06-08] MEDS: ARIPiprazole 5 MG Tablet PO SCH (21:10)
[2018-06-09] MEDS: Acetaminophen 325 MG Tablet PO PRN (08:46)
[2018-06-09] MEDS: Senna/Docusate Sodium 8.6/50 MG Tablet PO SCH ×2 (08:47→21:55)
[2018-06-09] MEDS: hydrALAZINE 25 MG Tablet PO SCH ×2 (08:47→21:55)
[2018-06-09] MEDS: amLODIPine 5 MG Tablet PO SCH (08:47)
--- NOTE | 2018-06-09 11:01 | P.PNPSY ---
Subjective Remarks: Pt seen and discussed with staff. She remains paranoid and refused hydralazine and colace this morning. She is easily agitated but has not been aggressive. She engages in bizarre behavior on unit (applied thick coat of toothpaste on lips for lipstick) No SI/HI. Mental Status Examination Appearance: Appropriate Consciousness: Alert, Vigilant Orientation: Person, Place (At least) Motor Activity: Other (No abnormal motor movements appreciated) Speech: Unremarkable Language: Adequate Fund of Knowledge: Adequate Attention and Concentration: Easily distracted Memory: Unremarkable Mood: Irritable Affect: Irritable Thought Process & Associations: Circumstantial Thought Content: Delusional Hallucination Type: None Delusion Type: Paranoid Suicidal Ideation: No Suicidal Plan: No Suicidal Intention: No Homicidal Ideation: No Homicidal Plan: No Homicidal Intention: No Insight: Poor Judgment: Poor Assessment and Plan - Assessment (1) Acute exacerbation of chronic paranoid schizophrenia Code(s): F20.0 - Paranoid schizophrenia Status: Acute - Plan Plan: Continue current tx plan Justification for Continued Inpatient Stay: impairments in reality testing Request Healthcare Surrogate/Guardian Advocate?: Yes
[2018-06-09] MEDS: ARIPiprazole 5 MG Tablet PO SCH (21:55)
[2018-06-10] MEDS: amLODIPine 5 MG Tablet PO SCH (08:53)
[2018-06-10] MEDS: hydrALAZINE 25 MG Tablet PO SCH ×2 (08:56→20:42)
[2018-06-10] MEDS: Senna/Docusate Sodium 8.6/50 MG Tablet PO SCH ×2 (08:57→20:42)
[2018-06-10] MEDS: Acetaminophen 325 MG Tablet PO PRN (10:46)
[2018-06-10] MEDS ORDERED: ARIPiprazole 5 MG Tablet PO SCH (11:50)
--- NOTE | 2018-06-10 11:56 | P.PNPSY ---
Subjective Remarks: Patient seen and examined with counselor and nurse. Chart reviewed. Case discussed with nursing staff who reports patient has been verbally intrusive and resistant to redirection. On my examination today, the patient presents as quite paranoid. She is standing at the door to her room and, seeing the team approaching, steps inside her room and closes the door, peering suspiciously out of the glass in the door. She refuses to answer interview questions, saying that she has already spoken with the nurse and that I may direct any questions therefore to the nurse. No evident side effects from medications. No physical complaints. Vital Signs Pulse Resp BP Pulse Ox 06/10/18 05:00 56 L 17 145/69 H 99 06/09/18 17:44 64 16 150/70 H 100 Intake and Output 06/09/18 06/10/18 06/10/18 22:59 06:59 14:59 Other: Weight 67.2 kg Labs reviewed. No new labs. Review of Systems unobtainable due to mental condition (Limitation: Psychosis) Mental Status Examination Appearance: Appropriate Consciousness: Alert, Vigilant Orientation: Person (At least) Motor Activity: Other (No motoric abnormalities noted) Speech: Unremarkable Language: Adequate Mood: Irritable Affect: Irritable Thought Process & Associations: Other (Limited sample) Thought Content: Delusional Hallucination Type: None Delusion Type: Paranoid Insight: Poor Judgment: Poor Mental Status Exam Remarks: MSE limited because of uncooperativeness, which I suspect is secondary to paranoia. Although the patient does not voice any SI or HI, she does not answer when I endeavored to question her about these or other psychiatric symptoms. Assessment and Plan - Assessment (1) Acute exacerbation of chronic paranoid schizophrenia Code(s): F20.0 - Paranoid schizophrenia Status: Acute - Plan Plan: Check EKG for QTc and BMP/Mg for electrolytes and replete accordingly. Plan to titrate Abilify to 7.5mg qHS to target psychosis with corresponding increase in Zyprexa dosing. Continue to monitor on the inpatient unit. Continue other medications and care as ordered. Justification for Continued Inpatient Stay: Medication changes. Impairment in reality construction. Complicating conditions. High risk for decompensation in less restrictive environment. Discharge Planning: Pending psychiatric stabilization. Request Healthcare Surrogate/Guardian Advocate?: Yes
[2018-06-11] MEDS: amLODIPine 5 MG Tablet PO SCH (09:49)
[2018-06-11] MEDS: hydrALAZINE 25 MG Tablet PO SCH ×2 (10:19→20:23)
[2018-06-11] MEDS: Senna/Docusate Sodium 8.6/50 MG Tablet PO SCH ×2 (10:20→20:27)
--- NOTE | 2018-06-11 12:13 | P.PNPSY ---
Subjective Remarks: Patient seen and examined. Chart reviewed. Case discussed with nursing staff. Patient reportedly refused laboratories this morning. I have reminded nursing about the order for temporary restraining if needed for laboratories, and laboratories will be obtained today. Case discussed in treatment team. Patient is noted to be agitated and needy by therapists. On my examination today, the patient seems a little less paranoid. She is more engaging in conversation. She denies any audiovisual hallucinations. Denies any SI or HI. Insight into mental illness remains quite poor. Denies side effects from medications. No physical complaints. Vital Signs Temp Pulse Resp BP Pulse Ox 06/11/18 05:51 97.3 F L 57 L 18 184/78 H 98 06/10/18 22:00 58 L 16 158/74 H 99 06/10/18 17:20 97.9 F 59 L 17 164/74 H 100 Refused laboratories this morning. EKG was read as sinus rhythm with a QTC of 421 ms. Review of Systems All other systems reviewed negative except as stated in HPI (Limitation: Psychosis) Mental Status Examination Appearance: Appropriate Consciousness: Alert, Vigilant Orientation: Person (At least) Motor Activity: Other (No abnormal motor movements noted) Speech: Unremarkable Language: Adequate Fund of Knowledge: Adequate Attention and Concentration: Easily distracted Memory: Unremarkable Mood: Irritable (Decreasing) Affect: Irritable (Decreasing) Thought Process & Associations: Other (Perseverative on discharge) Thought Content: Delusional Hallucination Type: None Delusion Type: Paranoid (Perhaps decreasing) Suicidal Ideation: No Suicidal Plan: No Suicidal Intention: No Homicidal Ideation: No Homicidal Plan: No Homicidal Intention: No Insight: Poor Judgment: Poor Assessment and Plan - Assessment (1) Acute exacerbation of chronic paranoid schizophrenia Code(s): F20.0 - Paranoid schizophrenia Status: Acute - Plan Plan: Titrate Abilify to 10 mg at bedtime with corresponding titration to Zyprexa dosing. Follow-up laboratories. Continue to trend QTC. Continue to monitor on the inpatient unit. Continue other medications and care as ordered. Justification for Continued Inpatient Stay: Medication changes. Impairment in reality construction. Risk for decompensation in less restrictive environment. Discharge Planning: Pending psychiatric stabilization. I have instructed the counselor to reach out to patient's family to see what assistance they can provide regarding discharge planning. Request Healthcare Surrogate/Guardian Advocate?: Yes
[2018-06-11 16:35] LABS: Calcium 9.4 mg/dL (8.5-10.1); Carbon Dioxide 32.5 meq/L (21.0-32.0); Magnesium 2.2 mg/dL (1.5-2.5); Potassium 3.5 meq/L (3.5-5.1)
--- NOTE | 2018-06-11 20:00 | ECG ---
Date Performed: 06/10/2018 Time Performed: 15:14:13 PTAGE: 57 years EKG: Sinus rhythm LEFT VENTRICULAR HYPERTROPHY AND ST-T CHANGE ABNORMAL ECG PREVIOUS TRACING : 06/07/2018 09.46 Since the previous tracing, no significant change noted DOCTOR: Mariana Arango Interpretating Date/Time 06/11/2018 19:57:12
[2018-06-11] MEDS ORDERED: ARIPiprazole 5 MG Tablet PO SCH (21:00)
[2018-06-12] MEDS ORDERED: Potassium Chloride 10 MEQ ER Capsule PO ONE (08:16)
--- NOTE | 2018-06-12 09:21 | P.PNPSY ---
Subjective Remarks: Patient seen and examined with nurse. Chart reviewed. Case discussed with nursing staff who reports patient remains paranoid, now regarding food contamination although she is eating. She is also reluctant to take medications. Case discussed with counselor who reports that patient's sister has offered to take the patient in, but the patient has refused, preferring instead a homeless discharge. On my examination today, the patient tells me that she had a "good night." She does express some concerns regarding food contamination, but she seems to say that this concern has decreased over the course of her hospital stay. She denies any SI or HI. Denies any AVH. Remains quite paranoid. For example, she believes that her blood pressure readings have been falsified, although she can provide no rationale for why this would be so, nor can she provide any evidence for why she believes this is happening. Moreover, she expresses paranoid ideation regarding 1 of the floor staff who works in the afternoon/evening saying that he has "something wrong with his eyes." Denies side effects from medications. No physical complaints. Vital Signs Temp Pulse Resp BP Pulse Ox 06/12/18 05:39 97.6 F 64 16 191/77 H 99 06/11/18 18:29 98.2 F 53 L 17 171/77 H 98 Laboratory Results - last 24 hr 06/11/18 15:51 Sodium 141 Potassium 3.5 Chloride 103 Carbon Dioxide 32.5 H Anion Gap 6 BUN 19 H Creatinine 0.98 Estimated GFR 71 L Random Glucose 83 Calcium 9.4 Magnesium 2.2 EKG reveals sinus bradycardia with QTC of 391 ms, not prolonged. Review of Systems All other systems reviewed negative except as stated in HPI (Limitation: Psychosis) Mental Status Examination Appearance: Appropriate Consciousness: Alert, Vigilant Orientation: Person (At least) Motor Activity: Other (No motoric abnormalities noted) Speech: Unremarkable Language: Adequate Fund of Knowledge: Adequate Attention and Concentration: Adequate Memory: Unremarkable Mood: Appropriate Affect: Appropriate Thought Process & Associations: Other (Remains perseverative on discharge) Thought Content: Delusional Hallucination Type: None Delusion Type: Paranoid Suicidal Ideation: No Suicidal Plan: No Suicidal Intention: No Homicidal Ideation: No Homicidal Plan: No Homicidal Intention: No Insight: Poor Judgment: Poor Assessment and Plan - Assessment (1) Acute exacerbation of chronic paranoid schizophrenia Code(s): F20.0 - Paranoid schizophrenia Status: Acute - Plan Plan: Patient is improving with the Abilify in the sense that she is less irritable and confrontational regarding her paranoid delusions, but these delusions unfortunately appear to remain more or less unchanged in intensity with the Abilify. I will continue Abilify titration to try to bring the symptoms under better control. Abilify 15 mg at bedtime this evening. To consider long- acting injectable Abilify Maintena. Titrate amlodipine to 10 mg daily to target elevated blood pressure and consult the hospitalist for further management. Replete potassium to try to bring K>4. Continue to monitor on the inpatient unit. Continue other medications and care as ordered. Justification for Continued Inpatient Stay: Medication changes. Impairment in reality construction. Risk for decompensation in less restrictive environment. Discharge Planning: Pending psychiatric stabilization. Possible discharge by the end of the week. Request Healthcare Surrogate/Guardian Advocate?: Yes
[2018-06-12] MEDS: amLODIPine 5 MG Tablet PO SCH (09:36)
[2018-06-12] MEDS: hydrALAZINE 25 MG Tablet PO SCH ×2 (09:36→16:46)
[2018-06-12] MEDS: Senna/Docusate Sodium 8.6/50 MG Tablet PO SCH ×2 (11:30→20:30)
--- NOTE | 2018-06-12 15:56 | P.PN ---
Subjective Interval history: Reconsult HTN, bradycardia. Patient seen and examined today. Reports she is doing well. Discussed medication adjustment. Verbalized understanding. Denies chest pain, palpitations , SOB/Dyspnea, dizziness. Physical Exam Vital signs: Vital Signs 06/11/18 18:29 06/12/18 05:39 Temperature 98.2 F 97.6 F Pulse Rate 53 L 64 Respiratory Rate 17 16 Blood Pressure 171/77 H 191/77 H Pulse Oximetry 98 99 Narrative: GENERAL: This is a well-nourished, well-developed patient, in no apparent distress. SKIN: Warm and dry. HEENT: Normocephalic. Pupils equal round and reactive. Nose without bleeding. Airway patent. NECK: Trachea midline. Supple. CARDIOVASCULAR: Bradycardia without murmurs, gallops, or rubs. RESPIRATORY: Clear to auscultation. Breath sounds equal bilaterally. No wheezes , rales, or rhonchi. GASTROINTESTINAL: Abdomen soft, nondistended. Bowel Sounds normoactive x4. Mild tenderness to palpate right flank side. MUSCULOSKELETAL: Extremities without clubbing, cyanosis. Bilateral lower extremity trace edema NEUROLOGICAL: Awake and alert. Oriented to place, person. No focal neuro deficit. Moves all extremities. Normal speech. Results - Labs CBC & Chem 7: 06/11/18 15:51 Laboratory Results - last 24 hr 06/11/18 15:51 Sodium 141 Potassium 3.5 Chloride 103 Carbon Dioxide 32.5 H Anion Gap 6 BUN 19 H Creatinine 0.98 Estimated GFR 71 L Random Glucose 83 Calcium 9.4 Magnesium 2.2 Assessment and Plan - Plan Patient is a 57-year-old -[place] female with medical history of HTN who initially came into the hospital under vargas act for psychiatric evaluation. She was transferred from the medical floor from the psychiatric unit after experiencing bradycardia in the setting of troponin elevation. Patient had refused echocardiogram 3. Cardiology has followed the patient in the inpatient setting and is agreed to transfer the patient to psychiatry unit with close follow-up and monitoring of QTC. She is not admitted back to inpatient psychiatry unit for further evaluation and control of her psychiatric disorder. Consulted for assistance and closer monitoring of cardiac function. Schizophrenia, paranoia -Managed by psychiatry team HTN, uncontrolled -increase Norvasc 10 mg daily. Increase Hydralazine 50mg twice daily -Patient continues to refuse medications on and off. -Continue to monitor BP trend -Agrees with plan Symptomatic bradycardia History of elevated troponin -Elevated troponin most likely secondary to HTN, left ventricular hypertrophy. Patient has refused echocardiogram 3 times in the inpatient setting. -Cardiology has followed the patient in a workup to be done at this time. -Monitor electrolytes. -Avoid AV ashia blocking agents -Monitor heart rate. QTC prolongation -As per cardiology QTC 462. Okay for psych medication to start. -May need EKG intermittently while on Psych meds. She has been refusing cardiac work up -Monitor QTc. Improved on latest EKG DVT Prop Ambulation Code Status: Full code Discussed Condition With: Patient, nursing Discharge Planning: DC disposition by primary team
[2018-06-12] MEDS: ARIPiprazole 5 MG Tablet PO SCH (20:29)
--- NOTE | 2018-06-12 21:21 | ECG ---
Date Performed: 06/12/2018 Time Performed: 09:26:36 PTAGE: 57 years EKG: SINUS BRADYCARDIA LEFT VENTRICULAR HYPERTROPHY AND ST-T CHANGE ABNORMAL ECG INTERPRETATION BASED ON A DEFAULT AGE OF 39 YEARS Since the PREVIOUS TRACING , no significant change noted DOCTOR: Johnny Singh Interpretating Date/Time 06/12/2018 21:18:54
[2018-06-13] MEDS: hydrALAZINE 25 MG Tablet PO SCH ×5 (08:11→18:12)
[2018-06-13] MEDS: amLODIPine 5 MG Tablet PO SCH (08:13)
[2018-06-13] MEDS: Senna/Docusate Sodium 8.6/50 MG Tablet PO SCH ×2 (08:13→22:59)
--- NOTE | 2018-06-13 08:52 | P.PNPSY ---
Subjective Remarks: Patient seen and examined with nurse. Chart reviewed. Case discussed with nursing staff who reports that the patient has not been aggressive but has a generally oppositional demeanor and is "negative towards everybody." Patient did have verbal outburst yesterday afternoon that required her to be brought in from fresh air. On my exam today, patient remains fairly oppositional. She says that she was just "singing a song" during fresh air yesterday and that she was misinterpreted. She remains a little paranoid, but this does seem to be abating. She is resistant to allowing anyone and in particular family to assist her on an outpatient basis, saying that she plans to reside in [address] [place] [address] in [facility], a house she reportedly shares with her aunt. Denies side effects from medications. No physical complaints. Vital Signs Temp Pulse Resp BP Pulse Ox 06/12/18 16:52 97.9 F 52 L 18 171/72 H 100 Intake and Output 06/12/18 06/13/18 06/13/18 22:59 06:59 14:59 Other: Weight 65.7 kg Laboratory Results - last 48 hr 06/11/18 15:51 Sodium 141 Potassium 3.5 Chloride 103 Carbon Dioxide 32.5 H Anion Gap 6 BUN 19 H Creatinine 0.98 Estimated GFR 71 L Random Glucose 83 Calcium 9.4 Magnesium 2.2 Labs reviewed. Patient did not receive K yesterday it appears, and so I have reordered this today. Review of Systems All other systems reviewed negative except as stated in HPI Mental Status Examination Appearance: Appropriate Consciousness: Alert, Vigilant Orientation: Person, Place (At least) Motor Activity: Other (No abnormal motor movements noted) Speech: Unremarkable Language: Adequate Fund of Knowledge: Adequate Attention and Concentration: Adequate Memory: Unremarkable Mood: Oppositional (Mild) Affect: Irritable (Mild) Thought Process & Associations: Other (Remains perseverative on discharge) Thought Content: Delusional Hallucination Type: None Delusion Type: Paranoid (Decreasing) Suicidal Ideation: No Suicidal Plan: No Suicidal Intention: No Homicidal Ideation: No Homicidal Plan: No Homicidal Intention: No Insight: Poor Judgment: Poor Assessment and Plan - Assessment (1) Acute exacerbation of chronic paranoid schizophrenia Code(s): F20.0 - Paranoid schizophrenia Status: Acute - Plan Plan: Patient's psychosis does appear improved with Abilify. I suspect her mild irritability and obstinacy are either characterologic or else a fixed component of her chronic psychotic illness. She is tolerating the Abilify well, and so I think it is reasonable to transition her at this time to Abilify Maintena to promote better adherence in outpatient setting. I have left a voicemail for CHANDU guardian advocate to discuss initiation of this agent. I did try to reach patient's brother first without success. Continue oral Abilify as ordered. Hospitalist input noted and appreciated. Continue to monitor on the inpatient unit. Continue other medications and care as ordered. Justification for Continued Inpatient Stay: Medication changes planned. Discharge Planning: Possible discharge tomorrow after patient receives Abilify Maintena. Request Healthcare Surrogate/Guardian Advocate?: Yes
[2018-06-13] MEDS ORDERED: Potassium Chloride 10 MEQ ER Capsule PO ONE (11:30)
[2018-06-13] MEDS ORDERED: ABILIFY MAINTENA 400 MG IM ONE (15:00)
--- NOTE | 2018-06-13 15:33 | P.PN ---
Subjective Interval history: Reconsult HTN, bradycardia. Follow-up visit HTN, bradycardia. Patient seen and examined today. Reports she is doing okay. States she is very upset how she is being treated. States that she wants to go home and be her water bills. States that they are keeping her "unnecessarily and illegally." Denies chest pain, palpitations, SOB/Dyspnea, dizziness. Physical Exam Vital signs: Vital Signs 06/12/18 16:52 Temperature 97.9 F Pulse Rate 52 L Respiratory Rate 18 Blood Pressure 171/72 H Pulse Oximetry 100 Intake & Output 06/12/18 06/13/18 06/13/18 18:59 06:59 18:59 Weight 65.7 kg Narrative: GENERAL: This is a well-nourished, well-developed patient, in no apparent distress. SKIN: Warm and dry. HEENT: Normocephalic. Pupils equal round and reactive. Nose without bleeding. Airway patent. NECK: Trachea midline. Supple. CARDIOVASCULAR: Regular rate and rhythm without murmurs, gallops, or rubs. RESPIRATORY: Clear to auscultation. Breath sounds equal bilaterally. No wheezes , rales, or rhonchi. GASTROINTESTINAL: Abdomen soft, nondistended. Bowel Sounds normoactive x4. Mild tenderness to palpate right flank side. MUSCULOSKELETAL: Extremities without clubbing, cyanosis. Bilateral lower extremity trace edema NEUROLOGICAL: Awake and alert. Oriented to place, person. No focal neuro deficit. Moves all extremities. Normal speech. Suspicious, paranoia Results - Labs CBC & Chem 7: 06/11/18 15:51 Assessment and Plan - Plan Patient is a 57-year-old -Citizen Of The [place] female with medical history of HTN who initially came into the hospital under vargas act for psychiatric evaluation. She was transferred from the medical floor from the psychiatric unit after experiencing bradycardia in the setting of troponin elevation. Patient had refused echocardiogram 3. Cardiology has followed the patient in the inpatient setting and is agreed to transfer the patient to psychiatry unit with close follow-up and monitoring of QTC. She is not admitted back to inpatient psychiatry unit for further evaluation and control of her psychiatric disorder. Consulted for assistance and closer monitoring of cardiac function. Schizophrenia, paranoia -Managed by psychiatry team -Continues to have paranoia, suspiciousness medications being given. HTN, uncontrolled -Norvasc 10 mg daily. Hydralazine 50mg TID. -Patient continues to refuse medications on and off. -Continue to monitor BP trend -Patient will continue to have elevated BP as she continues to refuse medications Symptomatic bradycardia History of elevated troponin -Elevated troponin most likely secondary to HTN, left ventricular hypertrophy. Patient has refused echocardiogram 3 times in the inpatient setting. -Cardiology has followed the patient in a workup to be done at this time. -Monitor electrolytes. -Avoid AV ashia blocking agents -Monitor heart rate. QTC prolongation -As per cardiology QTC 462. Okay for psych medication to start. -May need EKG intermittently while on Psych meds. She has been refusing cardiac work up -Monitor QTc. Improved on latest EKG DVT Prop Ambulation Patient continued refusal of medication hinders medical management. Paranoia continues. Stable from Hospitalist standpoint. We will sign off. Reconsult as needed. Thank you. Code Status: Full Code Discussed Condition With: Patient, nursing Discharge Planning: DC disposition by primary team
[2018-06-13] MEDS: ARIPiprazole 5 MG Tablet PO SCH (22:58)
[2018-06-14] MEDS: Senna/Docusate Sodium 8.6/50 MG Tablet PO SCH ×2 (08:46→21:28)
[2018-06-14] MEDS: hydrALAZINE 25 MG Tablet PO SCH ×2 (08:46→13:16)
[2018-06-14] MEDS: amLODIPine 5 MG Tablet PO SCH (08:46)
--- NOTE | 2018-06-14 13:03 | P.PNPSY ---
Subjective Remarks: Patient seen and examined with nurse. Chart reviewed. Case discussed with nursing staff. Patient became quite agitated yesterday and reportedly threatened to kill staff while performing some sort of bizarre dance and chanting behavior per nursing staff. In contrast, patient's behavior has been superficially friendly today, nurse suspects in service of obtaining discharged today. On my examination today, patient blandly denies making any sort of threats to staff yesterday. She remains paranoid and quite irritable when challenged even in the most gentle manner. She did receive her Abilify Maintena injection yesterday and denies side effects from medications. No physical complaints. Vital Signs Temp Pulse Resp BP Pulse Ox 06/14/18 05:52 97.9 F 60 17 171/81 H 98 06/13/18 18:04 66 18 155/56 H 100 Labs reviewed. No new labs. Review of Systems All other systems reviewed negative except as stated in HPI (Limitation: Psychosis) Mental Status Examination Appearance: Appropriate Consciousness: Alert, Vigilant Orientation: Person, Place (At least) Motor Activity: Other (No motoric abnormalities noted) Speech: Unremarkable Language: Adequate Fund of Knowledge: Adequate Attention and Concentration: Adequate Memory: Unremarkable Mood: Oppositional, Irritable Affect: Irritable Thought Process & Associations: Other (Remains perseverative on discharge) Thought Content: Delusional Hallucination Type: None Delusion Type: Paranoid Suicidal Ideation: No Homicidal Ideation: No (Denies presently but was making threats to staff yesterday) Insight: Poor Judgment: Poor Assessment and Plan - Assessment (1) Acute exacerbation of chronic paranoid schizophrenia Code(s): F20.0 - Paranoid schizophrenia Status: Acute - Plan Plan: Patient remains psychotic and intermittently threatening. Titrate Abilify to 10 mg twice daily with Zyprexa IM backup to supplement Abilify Maintena. I have encouraged full adherence with antihypertensive regimen as blood pressures remained somewhat elevated. Continue to monitor on the high acuity unit. Continue other medications and care as ordered. Justification for Continued Inpatient Stay: Medication changes. Impairment in reality construction. High risk for decompensation in less restrictive environment. Discharge Planning: Pending psychiatric stabilization. Request Healthcare Surrogate/Guardian Advocate?: Yes
[2018-06-14] MEDS: ARIPiprazole 5 MG Tablet PO SCH (21:29)
[2018-06-15] MEDS: hydrALAZINE 25 MG Tablet PO SCH ×4 (10:12→18:48)
[2018-06-15] MEDS: amLODIPine 5 MG Tablet PO SCH (10:13)
[2018-06-15] MEDS: ARIPiprazole 5 MG Tablet PO SCH ×2 (10:13→21:00)
[2018-06-15] MEDS: Senna/Docusate Sodium 8.6/50 MG Tablet PO SCH ×2 (10:14→21:21)
--- NOTE | 2018-06-15 16:03 | P.PNPSY ---
Subjective Remarks: Patient was seen and case discussed with nursing. Patient has poor insight into her admission and mental health history. She has been oppositional with her medications this morning. Patient says she does not like the approach of the nurses and she was given too many medications. She says she is agreeable for another nurse administered. She remains internally stimulated Mental Status Examination Appearance: Appropriate Consciousness: Alert, Vigilant Orientation: Person, Place (At least) Motor Activity: Other (No motoric abnormalities noted) Speech: Unremarkable Language: Adequate Fund of Knowledge: Adequate Attention and Concentration: Adequate Memory: Unremarkable Mood: Oppositional, Irritable Affect: Irritable Thought Process & Associations: Other (Remains perseverative on discharge) Thought Content: Delusional Hallucination Type: None Delusion Type: Paranoid Suicidal Ideation: No Suicidal Plan: No Suicidal Intention: No Homicidal Ideation: No (Denies presently but was making threats to staff yesterday) Homicidal Plan: No Homicidal Intention: No Insight: Poor Judgment: Poor Assessment and Plan - Assessment (1) Acute exacerbation of chronic paranoid schizophrenia Code(s): F20.0 - Paranoid schizophrenia Status: Acute - Plan Plan: Continue current treatment plan Justification for Continued Inpatient Stay: Patient would decompensate in a less restrictive setting Request Healthcare Surrogate/Guardian Advocate?: Yes
--- NOTE | 2018-06-16 13:03 | P.PNPSY ---
Subjective Remarks: Patient was seen and case discussed with nursing. Patient continues to refuse p.o. medication. She is happy with her IM injections of Zyprexa. Per nursing she has been irritable. During my interview she is pleasant but becomes defensive and raises her voice if questioned at any detail. She is perseverative on discharge and says she is doing "positive." She has been behaving well on the unit and has not had any outbursts. Denies any auditory or visual hallucinations Mental Status Examination Appearance: Appropriate Consciousness: Alert, Vigilant Orientation: Person, Place (At least) Motor Activity: Other (No motoric abnormalities noted) Speech: Unremarkable Language: Adequate Fund of Knowledge: Adequate Attention and Concentration: Adequate Memory: Unremarkable Mood: Oppositional, Irritable Affect: Irritable Thought Process & Associations: Other (Remains perseverative on discharge) Thought Content: Delusional Hallucination Type: None Delusion Type: Paranoid Suicidal Ideation: No Suicidal Plan: No Suicidal Intention: No Homicidal Ideation: No (Denies presently but was making threats to staff yesterday) Homicidal Plan: No Homicidal Intention: No Insight: Poor Judgment: Poor Assessment and Plan - Assessment (1) Acute exacerbation of chronic paranoid schizophrenia Code(s): F20.0 - Paranoid schizophrenia Status: Acute - Plan Plan: Continue current treatment plan Justification for Continued Inpatient Stay: Patient would decompensate in a less restrictive setting Request Healthcare Surrogate/Guardian Advocate?: Yes
[2018-06-16] MEDS: amLODIPine 5 MG Tablet PO SCH (13:11)
[2018-06-16] MEDS: hydrALAZINE 25 MG Tablet PO SCH ×3 (13:11→18:26)
[2018-06-16] MEDS: ARIPiprazole 5 MG Tablet PO SCH ×2 (13:11→21:14)
[2018-06-16] MEDS: Senna/Docusate Sodium 8.6/50 MG Tablet PO SCH ×2 (13:12→21:14)
[2018-06-17] MEDS: ARIPiprazole 5 MG Tablet PO SCH ×2 (09:04→20:39)
[2018-06-17] MEDS: hydrALAZINE 25 MG Tablet PO SCH ×3 (09:04→17:53)
[2018-06-17] MEDS: Senna/Docusate Sodium 8.6/50 MG Tablet PO SCH ×2 (09:05→20:38)
[2018-06-17] MEDS: amLODIPine 5 MG Tablet PO SCH (09:05)
--- NOTE | 2018-06-17 11:57 | P.PNPSY ---
Subjective Remarks: Patient seen and examined with counselor. Chart reviewed. Case discussed with nursing staff. I note that EKG ordered over the weekend was canceled secondary to patient refusal, although there is a temporary restraining order on file. I have reordered EKG for today and discussed with nursing staff. Case discussed with counselor. On my examination today, the patient remains irritable and oppositional. She speaks over this provider when I endeavored to have a discussion with her. She was observed yelling at staff prior to interview saying "y'all are aggravating my life!" On my examination today, the patient denies any suicidal or homicidal ideation. Denies any audiovisual hallucinations. She insists initially that she will return to her house in [facility] previously alluded to but then says she may go stay in a hotel. Counselor relates that he has spoken with patient's sister and the patient's aunt who lives in that home has a restraining order against the patient and so the patient may not go there. Patient denies any side effects from medications. No physical complaints. Vital Signs Temp Pulse Resp BP Pulse Ox 06/17/18 06:37 56 L 151/69 H 100 06/16/18 16:55 98 F 57 L 18 157/68 H 100 Intake and Output 06/16/18 06/17/18 06/17/18 22:59 06:59 14:59 Other: Weight 67.5 kg Labs reviewed. No new labs. Review of Systems All other systems reviewed negative except as stated in HPI (Limitation uncooperative) Mental Status Examination Appearance: Appropriate Consciousness: Alert, Vigilant Orientation: Person, Place (At least) Motor Activity: Other (No abnormal motor movements noted) Speech: Unremarkable Language: Adequate Fund of Knowledge: Adequate Attention and Concentration: Adequate Memory: Unremarkable Mood: Oppositional, Irritable Affect: Irritable Thought Process & Associations: Other (Perseverative on discharge) Thought Content: Other (Somewhat guarded) Hallucination Type: None Delusion Type: Other (Guarded) Suicidal Ideation: No Suicidal Plan: No Suicidal Intention: No Homicidal Ideation: No Homicidal Plan: No Homicidal Intention: No Insight: Poor Judgment: Poor Assessment and Plan - Assessment (1) Acute exacerbation of chronic paranoid schizophrenia Code(s): F20.0 - Paranoid schizophrenia Status: Acute - Plan Plan: Patient remains fairly irritable, although this may constitute a component of her baseline personality. On the other hand, she might benefit from titration of oral Abilify to target this symptom. I will obtain EKG to follow up QTC and consider Abilify titration based on those results. Continue to monitor on inpatient unit. Continue other medications and care as ordered. Justification for Continued Inpatient Stay: Risk for decompensation in less restrictive environment. Discharge Planning: Pending psychiatric stabilization. Patient is reportedly welcome to stay with sister but has refused this in the past. She is apparently not welcome to go to the home where the aunt resides. Discharge disposition presently unclear. Counselor working on this. Request Healthcare Surrogate/Guardian Advocate?: Yes
[2018-06-18] MEDS: amLODIPine 5 MG Tablet PO SCH (08:25)
[2018-06-18] MEDS: hydrALAZINE 25 MG Tablet PO SCH (08:27)
[2018-06-18] MEDS: ARIPiprazole 5 MG Tablet PO SCH (08:28)
[2018-06-18] MEDS: Senna/Docusate Sodium 8.6/50 MG Tablet PO SCH (08:29)
--- NOTE | 2018-06-18 10:27 | P.DSPSY ---
Psychiatry Discharge Summary Inpatient Psychiatric care?: Yes Advance Directives: No Mental Health Advance Directive: No Health Care Proxy: No - Admission Admission Date: June 03, 2018 17:19 - Admission Diagnosis (1) Paranoid type schizophrenia, chronic state Code(s): F20.0 - Paranoid schizophrenia Brief History: Ms. Lowe is a 57-year-old female with a history of schizophrenia who presented initially under a [place] act by law enforcement alleging that she was found dancing in the street. Shortly after admission to the inpatient psychiatric unit the patient required transfer to the medical floor secondary to bradycardia. After stabilization of her cardiac condition, she was transferred back to the inpatient psychiatric unit for further management of her psychiatric condition. Tobacco Use In Past 30 Days: No How Often Do You Have a Drink Containing Alcohol: Unable to Obtain Hospital Course: Patient was admitted to a locked, inpatient psychiatric unit. A general medical consultation was obtained. Appropriate precautions were in place throughout patient's hospital stay. Patient was seen and examined on the unit by psychiatry and also visited by counselor. Psychotropic medications were adjusted. Patient was started on long-acting injectable Abilify Maintena. There was no evidence of any suicidality or homicidality on the unit. There was no evidence of significant self-care deficit. Counselor and this provider made repeated attempts to convince the patient to allow us to assist in her discharge plan (e.g. to arrange for some sort of placement or housing) but were repeatedly rebuffed. The patient displayed a fairly persistent stubbornness and oppositionality, and this is felt to represent an enduring personality style in the setting of her chronic psychotic illness. On the day of discharge , patient seen and examined with counselor. Chart reviewed. Case discussed with nursing staff who reports the patient has been "very nice" today. Case discussed in treatment team. Therapists note patient's obstreperous personality style but concede that the patient has grown "more pleasant" with medication management. On my examination today, the patient is requesting discharge from the inpatient psychiatric unit today. She denies any suicidal or homicidal ideation, intent or plan. I can elicit no depressive or hypomanic/ manic symptoms. She has no audiovisual hallucinations. I can elicit no delusional material. Personality style remains unchanged as above. No side effects from medications. No physical complaints. Weighing the relevant factors and based on the available evidence, I ground helper street railway that the patient no longer meets criteria for involuntary psychiatric hospitalization. There is no evidence of imminent risk of harm to self or others, nor is there evidence of self-care deficit. She is insisting on discharge from the inpatient unit today , and I have no basis to retain her over her objection. As noted above, the patient is refusing all assistance with discharge planning. She will therefore be discharged to self today with psychiatric follow-up as arranged by counselor. I did review the patient's discharge medication regimen with the patient including need for follow-up Abilify Maintena injections and temporary supplementation with oral Abilify. Patient is also to follow up with primary care. I have counseled the patient to return to the psychiatric emergency room for any concerning symptoms as part of a general safety plan. - Discharge Discharge Date: 06/18/18 - Discharge Diagnosis (1) Acute exacerbation of chronic paranoid schizophrenia Diagnosis: Principal (Improved versus admission) Code(s): F20.0 - Paranoid schizophrenia Status: Acute Discharge Disposition: Self - Discharge Instructions Discharge Diet: Heart Healthy Diet Activities You Can Perform: Weight Bearing As Tolerat - Discharge Time > 30 minutes Mental Status Examination Appearance: Appropriate Consciousness: Alert Orientation: x4 Motor Activity: Other (No hand tremor, no dystonia, no dyskinesia, no other motor abnormalities noted.) Speech: Unremarkable Language: Adequate Fund of Knowledge: Adequate Attention and Concentration: Adequate Memory: Unremarkable Mood: Oppositional Affect: Appropriate Thought Process & Associations: Intact, Logical, Linear Thought Content: Appropriate Hallucination Type: None Delusion Type: None Suicidal Ideation: No Suicidal Plan: No Suicidal Intention: No Homicidal Ideation: No Homicidal Plan: No Homicidal Intention: No Mental Status Exam Remarks: Insight and judgment are likely chronically poor. Discharge/Advance Care Plan - Results Vital Signs: Last Vital Signs Temp 98.6 F 06/17/18 15:44 Pulse 75 06/17/18 15:44 Resp 18 06/17/18 15:44 BP 153/68 H 06/17/18 15:44 Pulse Ox 100 06/17/18 15:44 Lab Results: Laboratory Tests 06/11/18 15:51 Sodium 141 Potassium 3.5 Chloride 103 Carbon Dioxide 32.5 H Anion Gap 6 BUN 19 H Creatinine 0.98 Random Glucose 83 Calcium 9.4 Magnesium 2.2 Summary of Procedures: None done Pending Results: None - Medications Number of antipsychotic medications at discharge: 1 (Abilifdionte PO and Maintena) - Discharge Care Plan Goals to Promote Your Health: * To prevent worsening of your condition and complications * To maintain your health at the optimal level Directions to Meet Your Goals: Take your medications as prescribed Follow your dietary instruction Follow activity as directed Keep your appointments as scheduled Take your immunizations and boosters as scheduled If your symptoms worsen call your PCP, if no PCP go to Urgent Care Center or Emergency Room For 14/05 questions related to your inpatient stay or results of tests pending at discharge, please contact Dr. Jose Luis Gorman MD at Smoking is Dangerous to Your Health. Avoid second hand smoking
--- NOTE | 2018-06-18 12:42 | P.TTN ---
Treatment Team Staff: Psychiatrist (Dr. Gorman- Pt. still refuses some meds.) , Therapist (Gino-D/C to a friend, pt. refused all placement options. Josafat- Pt. attends select groups, pt. appears more sociable.), Other
== END 2018-06-18 12:50 | disposition home or self-care (01) ==
LOC: H260 17:19 → H270 18:25
PROVIDERS: ADMIT Psychiatry & Neurology Psychiatry; ATTEND Psychiatry & Neurology Psychiatry